=== PATIENT | female | born 1990 | race Caucasian/White ===

== ENCOUNTER → 2016-05-26 | Outpatient (CLI) | payer OTHER ==
[~2016-05-26] MED LIST: BCP PO; COLA100C PO; HYDR-3713 PO; IRON325T PO; MILKSUS PO; MULTLIQ7 PO; TYLE325T5 PO; WELLTAB40 PO
[2016-05-26 16:30] LABS: MEAN CORPUSCULAR HEMOGLOBIN 28.9 pg (27.0-33.0); MEAN CORPUSCULAR HGB CONC 33.5 g/dl (32.0-36.5); MEAN CORPUSCULAR VOLUME 86.4 fl (80.0-96.0); RED CELL DISTRIBUTION WIDTH 13.7 % (11.5-14.5)
[2016-05-26 17:11] LABS: ALBUMIN 3.9 GM/DL (3.2-5.2); ALBUMIN/GLOBULIN RATIO 1.05 (1.00-1.93); ALKALINE PHOSPHATASE 78 U/L (45-117); ALT/SGPT 46 U/L (12-78); ANION GAP 11 MEQ/L (8-16); AST/SGOT 23 U/L (15-37); BILIRUBIN,TOTAL 0.4 MG/DL (0.2-1.0); BLOOD UREA NITROGEN 13 MG/DL (7-18); CALCIUM LEVEL 9.7 MG/DL (8.5-10.1); CARBON DIOXIDE LEVEL 27 MEQ/L (21-32); CHLORIDE LEVEL 104 MEQ/L (98-107); CREATININE FOR GFR 1.04 MG/DL (0.55-1.02); FREE T4 0.78 NG/DL (0.76-1.46); GLOMERULAR FILTRATION RATE > 60.0 (>60); GLUCOSE, FASTING 85 MG/DL (70-105); POTASSIUM SERUM 3.4 MEQ/L (3.5-5.1); SODIUM LEVEL 142 MEQ/L (136-145); TOTAL PROTEIN 7.6 GM/DL (6.4-8.2)
== END ==
LOC: M WUC 15:34
PROVIDERS: ATTEND Family Medicine
DX: F43.21 Adjustment disorder with depressed mood (principal); E03.9 Hypothyroidism, unspecified

== ENCOUNTER → 2016-11-18 | Outpatient (CLI) | payer OTHER ==
[~2016-11-18] MED LIST changes: -COLA100C PO; +COLA100C5 PO
[2016-11-18 17:12] LABS: FREE T4 0.71 NG/DL (0.76-1.46)
== END ==
LOC: M WUC 15:06
PROVIDERS: ATTEND Family Medicine
DX: E03.9 Hypothyroidism, unspecified (principal)

== ENCOUNTER → 2017-09-25 | Outpatient (REF) | payer BC, OTHER | LOC: M LAB REF 09-26 10:38 | DX: J02.9 Acute pharyngitis, unspecified (principal) | CPT/HCPCS: 87077 ==

== ENCOUNTER → 2018-01-13 | Outpatient (CLI) | payer BC ==
[2018-01-13 17:12] LABS: ALBUMIN 3.6 GM/DL (3.2-5.2); ALBUMIN/GLOBULIN RATIO 0.92 (1.00-1.93); ALKALINE PHOSPHATASE 78 U/L (45-117); ALT/SGPT 29 U/L (12-78); ANION GAP 12 MEQ/L (8-16); AST/SGOT 17 U/L (7-37); BILIRUBIN,TOTAL 0.4 MG/DL (0.2-1.0); BLOOD UREA NITROGEN 12 MG/DL (7-18); CALCIUM LEVEL 8.9 MG/DL (8.5-10.1); CARBON DIOXIDE LEVEL 22 MEQ/L (21-32); CHLORIDE LEVEL 107 MEQ/L (98-107); CHOLESTEROL LEVEL 161 MG/DL (<200); CHOLESTEROL RISK RATIO 4.878 (<5); CREATININE FOR GFR 0.88 MG/DL (0.55-1.30); GLOMERULAR FILTRATION RATE > 60.0 (>60); GLUCOSE, FASTING 81 MG/DL (70-100); HDL CHOLESTEROL 33 MG/DL (>40); LDL CHOLESTEROL 102 MG/DL (<100); NON-HDL-C 128 MG/DL; POTASSIUM SERUM 4.2 MEQ/L (3.5-5.1); SODIUM LEVEL 141 MEQ/L (136-145); TOTAL PROTEIN 7.5 GM/DL (6.4-8.2); TRIGLYCERIDES LEVEL 132 MG/DL (<150)
== END ==
LOC: M WUC 14:30
DX: I10 Essential (primary) hypertension (principal); E78.1 Pure hyperglyceridemia
CPT/HCPCS: 80053

== ENCOUNTER 2018-02-08 06:50 | Emergency (ER) | payer BC ==
[2018-02-08] MEDS: KETOROLAC 30 MG/ML VIAL (J1885) IV ×2 (07:31)
[2018-02-08] MEDS: METOCLOPRAMIDE INJ 10MG/2ML VIAL (J2765) IV ×2 (07:31)
[2018-02-08] MEDS: NS 1,000 ML IV ×2 (07:31)
[2018-02-08 07:33] LABS: BASO % 0.3 % (0.0-1.0); EOS % 0.2 % (0.0-3.0); HEMATOCRIT 40.2 % (36.0-47.0); HEMOGLOBIN 12.8 g/dl (12.0-15.5); IMMATURE GRANULOCYTE % 0.5 % (0-3.0); LYMPH # 1.3 10^3/uL (1.5-6.5); MEAN CORPUSCULAR HEMOGLOBIN 26.1 pg (27.0-33.0); MEAN CORPUSCULAR HGB CONC 31.8 g/dl (32.0-36.5); MONO # 1.5 10^3/uL (0.0-0.8); MONO % 12.6 % (0.0-5.0); NEUTROPHILS # 8.7 10^3/uL (1.8-7.7); NEUTROPHILS % 75.4 % (36.0-66.0); PLATELET COUNT, AUTOMATED 353 10^3/uL (150-450); RED CELL DISTRIBUTION WIDTH 15.8 % (11.5-14.5); WHITE BLOOD COUNT 11.5 10^3/uL (4.0-10.0)
[2018-02-08 07:55] LABS: ERYTHROCYTE SEDIMENTATION RATE 48 mm/hr (0-20)
[2018-02-08 07:58] LABS: ANION GAP 7 MEQ/L (8-16); BLOOD UREA NITROGEN 10 MG/DL (7-18); CALCIUM LEVEL 9.4 MG/DL (8.5-10.1); CARBON DIOXIDE LEVEL 26 MEQ/L (21-32); CHLORIDE LEVEL 106 MEQ/L (98-107); CREATININE FOR GFR 0.96 MG/DL (0.55-1.30); GLOMERULAR FILTRATION RATE > 60.0 (>60); GLUCOSE, FASTING 105 MG/DL (70-100); SODIUM LEVEL 139 MEQ/L (136-145)
[2018-02-08] MEDS: ACETAMINOPHEN 325 MG TAB PO ×2 (08:26)
== END 2018-02-08 09:08 | disposition home or self-care (01) ==
LOC: M ED 06:50
DX: R51 Headache (principal); B34.9 Viral infection, unspecified
CPT/HCPCS: J1885

== ENCOUNTER → 2018-02-09 | Outpatient (REF) | payer BC ==
[2018-02-09 13:51] LABS: APPEARANCE, URINE HAZY (CLEAR); BACTERIA, URINE AUTO NEGATIVE (NEGATIVE); BILIRUBIN, URINE AUTO NEGATIVE (NEGATIVE); BLOOD, URINE BLOOD 2+ (NEGATIVE); COLOR, URINE YELLOW (YELLOW); GLUCOSE, URINE (UA) AUTO NEGATIVE (NEGATIVE); KETONE, URINE AUTO NEGATIVE (NEGATIVE); LEUKOCYTE ESTERASE, URINE AUTO 1+ (NEGATIVE); MUCUS, URINE SMALL (NEGATIVE); NITRITE, URINE AUTO NEGATIVE (NEGATIVE); PROTEIN, URINE AUTO NEGATIVE (NEGATIVE); RBC, URINE AUTO 13 /HPF (0-3); SPECIFIC GRAVITY URINE AUTO 1.015 (1.002-1.035); SQUAMOUS EPITHELIAL CELL UR AU 0 /HPF (0-6); UROBILINOGEN, URINE AUTO 0.2 mg/dL (0.0-2.0); WBC, URINE AUTO 15 /HPF (0-3)
== END ==
LOC: M LAB REF 12:41
DX: N39.0 Urinary tract infection, site not specified (principal)
CPT/HCPCS: 81001

== ENCOUNTER → 2018-03-21 | Outpatient (REF) | payer BC | LOC: M SFHCPLAZ 20:28 | DX: I78.1 Nevus, non-neoplastic (principal) | CPT/HCPCS: 88305 ==

== ENCOUNTER → 2019-05-06 | Outpatient (REF) | payer BC ==
[~2019-05-06] MED LIST changes: +CHLO125TA; +IBUP80TA PO; +LEVO75TA4; +MILK120011 PO; -MILKSUS PO; +VERA120C; +VITA200016 PO; +ZOFR4TAB14 PO
== END ==
LOC: M LAB REF 12:06
PROVIDERS: ATTEND Physician Assistant Medical
DX: J02.9 Acute pharyngitis, unspecified (principal)

== ENCOUNTER → 2019-07-04 | Outpatient (REF) | payer BC ==
[2019-07-04 16:43] LABS: HEMATOCRIT 43.3 % (36.0-47.0); HEMOGLOBIN 13.9 g/dl (12.0-15.5); MEAN CORPUSCULAR HGB CONC 32.1 g/dl (32.0-36.5); MEAN CORPUSCULAR VOLUME 90.4 fl (80.0-96.0); PLATELET COUNT, AUTOMATED 382 10^3/uL (150-450); RED BLOOD COUNT 4.79 10^6/uL (4.00-5.40); WHITE BLOOD COUNT 10.6 10^3/uL (4.0-10.0)
[2019-07-04 17:02] LABS: ALBUMIN 3.6 GM/DL (3.2-5.2); ALT/SGPT 34 U/L (12-78); BILIRUBIN,TOTAL 0.4 MG/DL (0.2-1.0); BLOOD UREA NITROGEN 14 MG/DL (7-18); CALCIUM LEVEL 8.9 MG/DL (8.5-10.1); CARBON DIOXIDE LEVEL 25 MEQ/L (21-32); CHLORIDE LEVEL 108 MEQ/L (98-107); CREATININE FOR GFR 0.85 MG/DL (0.55-1.30); FREE T4 0.77 NG/DL (0.76-1.46); GLOMERULAR FILTRATION RATE > 60.0 (>60); GLUCOSE, FASTING 81 MG/DL (70-100); POTASSIUM SERUM 4.4 MEQ/L (3.5-5.1); SODIUM LEVEL 140 MEQ/L (136-145); TOTAL PROTEIN 7.1 GM/DL (6.4-8.2)
== END ==
LOC: M SFHCADAM 12:22
PROVIDERS: ATTEND Physician Assistant
DX: F43.21 Adjustment disorder with depressed mood (principal); F41.9 Anxiety disorder, unspecified; I10 Essential (primary) hypertension; E03.9 Hypothyroidism, unspecified

== ENCOUNTER 2019-09-10 20:53 | Inpatient (IN) | payer BC ==
[~2019-09-10] VITALS: Ht 180.3 cm; Wt 165.4 kg
[~2019-09-10 20:53] MED LIST changes: -CHLO125TA; +CHLO125TA PO; -LEVO75TA4; +LEVO75TA4 PO; -VERA120C; +VERA120C PO
[2019-09-10] MEDS ORDERED: ONDANSETRON 4MG/2ML VIAL IV ONE (21:30)
[2019-09-10] MEDS ORDERED: NS 1,000 ML IV ONE (21:30)
[2019-09-10] MEDS ORDERED: IBUPROFEN 600 MG TAB PO ONE (21:30)
[2019-09-10 22:18] LABS: ALBUMIN 3.3 GM/DL (3.2-5.2); ALT/SGPT 43 U/L (12-78); BILIRUBIN,DIRECT 0.3 MG/DL (0.0-0.2); BILIRUBIN,TOTAL 0.8 MG/DL (0.2-1.0); BLOOD UREA NITROGEN 11 MG/DL (7-18); CALCIUM LEVEL 8.2 MG/DL (8.5-10.1); CARBON DIOXIDE LEVEL 27 MEQ/L (21-32); CHLORIDE LEVEL 101 MEQ/L (98-107); CK-MB VALUE MASS 1.4 NG/ML (<3.6); CPK CREATINE PHOSPHOKINASE 897 U/L (26-192); CREATININE FOR GFR 1.08 MG/DL (0.55-1.30); GLOMERULAR FILTRATION RATE > 60.0 (>60); GLUCOSE, FASTING 103 MG/DL (70-100); LIPASE 90 U/L (73-393); MB/CK RELATIVE INDEX 0.16 (< OR =4); POTASSIUM SERUM 3.2 MEQ/L (3.5-5.1); SODIUM LEVEL 135 MEQ/L (136-145); TOTAL PROTEIN 7.1 GM/DL (6.4-8.2); TROPONIN I < 0.02 NG/ML (< 0.10)
[2019-09-10 22:19] LABS: BASO % 0.5 % (0.0-1.0); EOS # 0.1 10^3/uL (0.0-0.5); EOS % 0.6 % (0.0-3.0); HEMATOCRIT 40.3 % (36.0-47.0); HEMOGLOBIN 13.8 g/dl (12.0-15.5); LYMPH # 0.9 10^3/uL (1.5-5.0); LYMPH % 10.5 % (24.0-44.0); MEAN CORPUSCULAR HEMOGLOBIN 30.1 pg (27.0-33.0); MEAN CORPUSCULAR HGB CONC 34.2 g/dl (32.0-36.5); MONO # 0.4 10^3/uL (0.0-0.8); MONO % 4.9 % (0.0-5.0); NEUTROPHILS # 7.2 10^3/uL (1.5-8.5); NEUTROPHILS % 82.7 % (36.0-66.0); PLATELET COUNT, AUTOMATED 186 10^3/uL (150-450); RED BLOOD COUNT 4.58 10^6/uL (4.00-5.40); WHITE BLOOD COUNT 8.8 10^3/uL (4.0-10.0)
[2019-09-10 22:20] LABS: HCG, SERUM QUALITATIVE NEGATIVE (NEGATIVE)
[2019-09-10] MEDS ORDERED: POTASSIUM CHLORIDE 10 MEQ SR TABLET PO ONE (22:30)
[2019-09-10] MEDS ORDERED: ACETAMINOPHEN TAB 650MG DOSE (2X325MG) PO ONE (22:30)
[2019-09-10] MEDS ORDERED: ACETAMINOPHEN TAB 650MG DOSE (2X325MG) As Ordered ONE (22:32)
[2019-09-10] MEDS ORDERED: BUSP15TA47 PO (22:57)
[2019-09-10] MEDS ORDERED: VITA-144 PO (22:57)
--- NOTE | 2019-09-10 23:12 | REPVR ---
PROCEDURE INFORMATION: Exam: XR Chest, 1 View Exam date and time: 09/10/2019 10:47 PM Age: 28 years old Clinical indication: Fever TECHNIQUE: Imaging protocol: XR of the chest Views: 1 view. COMPARISON: No relevant prior studies available. FINDINGS: Lungs: Unremarkable. No consolidation. No pulmonary edema. Pleural space: Unremarkable. No pleural effusion or pneumothorax is identified. Heart/Mediastinum: Unremarkable. No cardiomegaly. Bones/joints: Unremarkable. IMPRESSION: No acute findings. Electronically signed by: Guillermo Villarreal On 09/10/2019 23:11:48 PM
[2019-09-10] MEDS ORDERED: CIPROFLOXACIN 400 MG in IV 1 EA IV ONE (23:45)
[2019-09-11 00:51] VITALS: BP 126/59
--- NOTE | 2019-09-11 01:35 | HPEPDOC ---
[facility] Medical History & Physical Date of Admission September 11, 2019 Date of Service: September 11, 2019 Primary Care Physician: Johann Ashley MD History and Physical CHIEF COMPLAINT: Fevers HISTORY OF PRESENT ILLNESS: Shelia Vega is a 28 year old female who presented to the emergency department with a three-day history of fevers and body aches. Her symptoms began on Tuesday after driving out to [facility] to visit family. She states that she thought she was dehydrated , experiencing chills, nausea, vomiting and body aches. 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 Today she was able to obtain a thermometer, and found her temperature to be 103F. This is when she decided to seek medical care. She has noticed some urinary frequency but denies dysuria. 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 In the ED, workup revealed likely UTI with little improvement of fever despite treatment with tylenol and ibuprofen. She was started on IV ciprofloxacin for UTI coverage and hospitalist team was called for admission. PAST MEDICAL HISTORY: 1. PCOS 2. Depression/anxiety. 3. Hypothyroidism 4. Hypertension PAST SURGICAL HISTORY: 1. Internal fixation of bilateral wrists 1996 2. Lateral Meniscus repair 2006 3. Cholecystectomy 2013 SOCIAL HISTORY: Never smoker. Occasional alcohol use. No history of IV drug use. FAMILY HISTORY: Father alive with diabetes mellitus and hypertension. Mother alive with hypertension. ALLERGIES: Please see below. REVIEW OF SYSTEMS: CONSTITUTIONAL: Positive per HPI. Denies night sweats, fatigue, unexpected change in weight. HEENT: Denies change in vision, change in hearing. CARDIOVASCULAR: Denies chest pain, palpitations, shortness of breath, lightheadedness. RESPIRATORY: Denies dyspnea, cough, wheezing. GASTROINTESTINAL: Positive per HPI. Denies abdominal pain, diarrhea, constipation, blood in stool. GENITOURINARY: Positive per HPI. Denies dysuria, urinary urgency. SKIN: Denies rash, lesions. MUSCULOSKELETAL: Positive per HPI. Denies joint pain. NEUROLOGICAL: Denies headache, dizziness, weakness. PSYCHIATRIC: Denies change in mood. HOME MEDICATIONS: Please see below. PHYSICAL EXAMINATION: VITAL SIGNS: See below GENERAL: Alert, comfortable, obese female sitting up comfortably in bed in no acute distress HEENT: Normocephalic, atraumatic, PERRLA, EOMI, moist mucous membranes NECK: Supple, trachea midline, no lymphadenopathy, no JVD CARDIOVASCULAR: Regular rate and rhythm, normal S1 and S2. No murmurs, rubs, or gallops RESPIRATORY: Clear to auscultation bilaterally with equal air entry bilaterally. No wheezing, rhonchi, or rales. ABDOMEN: Soft, nontender, nondistended, bowel sounds present, no masses or hepatosplenomegaly appreciated. No CVA tenderness. EXTREMITIES: No cyanosis or edema. Pulses 2+/4 in bilateral upper and lower extremities SKIN: [place], warm, dry, no rash NEUROLOGIC: Alert and oriented 3 to person, place and time. Cranial nerves 2-12 grossly intact. No focal deficits appreciated PSYCHIATRIC: Mood and affect appropriate LABORATORY DATA: See below. IMAGING: -CXR: No acute findings. MICROBIOLOGY: Please see below. ASSESSMENT: 28-year-old female presenting with three-day history of fevers and myalgias admitted for treatment of sepsis secondary to UTI PLAN: 1. Sepsis 2/2 UTI vs unknown source - sepsis criteria with tachycardia and fever, s/p 1 liter IV fluids, lactic acid <2 - CXR negative for pneumonia, respiratory panel negative, COVID-19 negative. - UA suspicious for infection, urinary culture pending, IV ciprofloxacin day #1 - blood cultures x2 drawn and pending - Tylenol prn for fever. telemetry unit for tachycardia. 2. Hypokalemia - check Mg level, replete electrolytes as needed, monitor daily 3. HTN - continue home verapamil and chlorthalidone 4. Depression/anxiety - continue home bupropion and buspirone 5. Hypothyroidism - continue home levothyroxine DVT prophylaxis: lovenox, teds/scds GI prophylaxis: not currently indicated Disposition: admitted to PCU for IV antibiotics, telemetry monitoring, further evaluation of fever Vital Signs Vital Signs Date Time Temp Pulse Resp B/P (MAP) Pulse Ox O2 Delivery O2 Flow Rate FiO2 09/11/19 00:15 101.0 101 16 126/62 (83) 99 Room Air Laboratory Data Labs 24H Laboratory Tests 2 09/10/19 21:16: Lactic Acid Level 1.3, Coronavirus (COVID-19)(PCR) NEGATIVE 09/10/19 21:17: Immature Granulocyte % (Auto) 0.8, Neutrophils (%) (Auto) 82.7H, Lymphocytes (%) (Auto) 10.5L, Monocytes (%) (Auto) 4.9, Eosinophils (%) (Auto) 0.6, Basophils (%) (Auto) 0.5, Neutrophils # (Auto) 7.2, Lymphocytes # (Auto) 0.9L, Monocytes # (Auto) 0.4, Eosinophils # (Auto) 0.1, Basophils # (Auto) 0.0, Nucleated Red Blood Cells % (auto) 0.0, Anion Gap 7L, Glomerular Filtration Rate > 60.0, Calcium Level 8.2L, Total Bilirubin 0.8, Direct Bilirubin 0.3H, Aspartate Amino Transf (AST/SGOT) 68H, Alanine Aminotransferase (ALT/SGPT) 43, Alkaline Phosphatase 69, Total Creatine Kinase 897H, Creatine Kinase MB 1.4, Creatine Kinase MB Relative Index 0.16, Troponin I < 0.02, Total Protein 7.1, Albumin 3.3, Albumin/Globulin Ratio 0.9L, Lipase 90, Human Chorionic Gonadotropin, Qual NEGATIVE 09/10/19 22:25: Urine Color CHE, Urine Appearance HAZY, Urine pH 6.0, Urine Specific [place] 1.025, Urine Protein 2+H, Urine Glucose (UA) NEGATIVE, Urine Ketones TRACEH, Urine Blood 2+H, Urine Nitrite NEGATIVE, Urine Bilirubin NEGATIVE, Urine Urobilinogen 4.0H, Urine Leukocyte Esterase 2+H, Urine WBC (Auto) TNTCH, Urine RBC (Auto) 10H, Urine Hyaline Casts (Auto) 0, Urine Bacteria (Auto) 1+H, Urine Squamous Epithelial Cells 5, Urine Mucus (Auto) SMALL, Urine Sperm (Auto) CBC/BMP Laboratory Tests 09/10/19 21:17 Microbiology Microbiology 09/10/19 Urine Culture, Received Pending 09/10/19 Blood Culture, Received Pending 09/10/19 Blood Culture, Received Pending 09/10/19 Respiratory Virus Panel (PCR) (LINDA) - Final, Complete Home Medications Scheduled Bupropion HCl (Wellbutrin Xl) 300 Mg Tab, 300 MG PO DAILY Buspirone HCl (Buspirone HCl) 15 Mg Tablet, 15 MG PO DAILY Chlorthalidone (Chlorthalidone) 12.5 Mg Halftab, 25 MG PO DAILY Cholecalciferol (Vitamin D3) (Vitamin D3) 25 Mcg Tablet, 1,000 UNITS PO DAILY Levothyroxine Sodium (Levothyroxine Sodium) 75 Mcg Tab, 75 MCG PO DAILY Verapamil HCl (Verapamil ER) 120 Mg Cap, 120 MG PO DAILY Allergies Coded Allergies: cefuroxime (Verified Allergy, Mild, 09/12/19) GME ATTESTATION My faculty preceptor for this patient encounter was physically present during the encounter and was fully available. All aspects of the patient interview, examination, medical decision making process, and medical care plan development were reviewed and approved by the faculty preceptor. The faculty preceptor is aware and concurs with the plan as stated in the body of this note and will attest to such by his/her cosignature. ATTENDING NOTE I personally evaluated and examined Ms. Flores and discussed her plan with the resident physician as outlined above. 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 LANE MALLORY D.O. September 11, 2019 01:35 SUMAN COWAN MD September 18, 2019 06:22
[2019-09-11] MEDS ORDERED: POTASSIUM CHLORIDE 10 MEQ SR TABLET PO ONE ×2 (02:00→06:00)
[2019-09-11] MEDS ORDERED: SLF 3 ML SYR IV PRN (02:30)
[2019-09-11 04:00] VITALS: BP 128/86
[2019-09-11 05:30] LABS: HEMATOCRIT 38.2 % (36.0-47.0); HEMOGLOBIN 12.9 g/dl (12.0-15.5); MEAN CORPUSCULAR HEMOGLOBIN 29.9 pg (27.0-33.0); MEAN CORPUSCULAR HGB CONC 33.8 g/dl (32.0-36.5); MEAN CORPUSCULAR VOLUME 88.4 fl (80.0-96.0); PLATELET COUNT, AUTOMATED 165 10^3/uL (150-450); RED BLOOD COUNT 4.32 10^6/uL (4.00-5.40); WHITE BLOOD COUNT 11.7 10^3/uL (4.0-10.0)
[2019-09-11 05:50] LABS: ALT/SGPT 45 U/L (12-78); BILIRUBIN,TOTAL 0.7 MG/DL (0.2-1.0); BLOOD UREA NITROGEN 11 MG/DL (7-18); CARBON DIOXIDE LEVEL 25 MEQ/L (21-32); CHLORIDE LEVEL 105 MEQ/L (98-107); CREATININE FOR GFR 0.98 MG/DL (0.55-1.30); GLOMERULAR FILTRATION RATE > 60.0 (>60); GLUCOSE, FASTING 95 MG/DL (70-100); MAGNESIUM LEVEL 2.2 MG/DL (1.8-2.4); POTASSIUM SERUM 3.1 MEQ/L (3.5-5.1); SODIUM LEVEL 138 MEQ/L (136-145); TOTAL PROTEIN 6.3 GM/DL (6.4-8.2)
[2019-09-11] MEDS: SLF 3 ML SYR IV SCH ×3 (06:43→21:11)
[2019-09-11] MEDS: ACETAMINOPHEN TAB 650MG DOSE (2X325MG) PO PRN ×3 (07:00→21:39)
--- NOTE | 2019-09-11 07:16 | ECGEPIP ---
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
[2019-09-11 08:00] VITALS: BP 140/78
[2019-09-11] MEDS: KCL 10MEQ/100ML SWI (KRUN) 10 MEQ in IV 1 EA IV SCH ×2 (09:00→09:32)
[2019-09-11] MEDS: busPIRone 5 MG TAB PO SCH (09:32)
[2019-09-11] MEDS: buPROPion **XL** TABLET 150MG (WELLBUTRIN XL) PO SCH (09:32)
[2019-09-11] MEDS: ENOXAPARIN 40MG/0.4ML SYRINGE (J1650 PER 10MG) SC SCH (09:32)
[2019-09-11] MEDS: LEVOTHYROXINE 75MCG TABLET (0.075MG) PO SCH (09:33)
[2019-09-11] MEDS: CHLORTHALIDONE 25 MG TAB PO SCH (09:33)
[2019-09-11] MEDS: VITAMIN D 1,000 INTERNATIONAL UNITS TABLET PO SCH (09:33)
[2019-09-11] MEDS: VERAPAMIL 120 MG SR TAB PO SCH (09:33)
[2019-09-11 12:00] VITALS: BP 146/72
[2019-09-11] MEDS ORDERED: CIPROFLOXACIN 400 MG in IV 1 EA IV SCH ×2 (12:00)
[2019-09-11 14:25] LABS: FIBRINOGEN 388 MG/DL (221-452); INR 1.32; PROTHROMBIN TIME 16.1 SECONDS (11.8-14.0)
[2019-09-11 14:26] LABS: PARTIAL THROMBOPLASTIN TIME 36.4 SECONDS (25.0-38.4)
[2019-09-11 14:47] LABS: D-DIMER QUANT > 4000.00 ng/ml (<500)
--- NOTE | 2019-09-11 14:54 | REP ---
REASON FOR EXAM: Acute kidney injury. COMPARISON: 07/17/2015 Once again, the examination is limited due to the patient's body habitus. RENAL ULTRASOUND: FINDINGS: Multiple ultrasonographic images of the right kidney show the right kidney to measure 12.2 x 6.7 x 5.8 cm. The renal cortical echotexture is unremarkable. There are no masses. There is good corticomedullary differentiation. There is no hydronephrosis. There are no perinephric fluid collections. Multiple ultrasonographic images of the left kidney show the left kidney to measure 11.6 x 6.2 x 5.1 cm. The renal cortical echotexture is unremarkable. There are no masses. There is good corticomedullary differentiation. There is no hydronephrosis. There are no perinephric fluid collections. Doppler of the urinary bladder was obtained to assess for urojet phenomena at the ureterovesical junction, however, the urinary bladder was empty. IMPRESSION: Unremarkable renal ultrasonography. Once again, the exam is limited by the patient's body habitus. There does not appear to be a significant change compared to the prior exam. Electronically Signed by Ghanshyam Ruggiero DO 09/11/2019 03:21 P
[2019-09-11] MEDS: ONDANSETRON 4MG/2ML VIAL IV SCH ×2 (14:56→20:00)
[2019-09-11] MEDS ORDERED: cefTRIAXone SOD 2 GM in D5W MINI-BAG PLUS 50 ML IV ONE (15:00)
[2019-09-11 15:06] LABS: HCG, SERUM QUANTITATIVE < 1.0 MIU/ML
[2019-09-11 15:07] LABS: CPK CREATINE PHOSPHOKINASE 1410 U/L (26-192); FERRITIN 7576 NG/ML (8-252); LDH LACTATE DEHYDROGENASE 492 U/L (84-246); TROPONIN I < 0.02 NG/ML (< 0.10)
[2019-09-11] MEDS: NS 1,000 ML IV SCH (15:57)
[2019-09-11 16:00] VITALS: BP 158/88
[2019-09-11] MEDS ORDERED: IBUPROFEN 600 MG TAB PO ONE (16:00)
[2019-09-11] MEDS ORDERED: ISOVUE-370 76% 100ML VIAL As Ordered ONE (16:41)
--- NOTE | 2019-09-11 16:52 | IPNPDOC ---
Date Seen The patient was seen on 09/11/19. Progress Note SUBJECTIVE: Patient seen and examined at the bedside this afternoon. She complains of severe right lower quadrant abdominal pain radiating to her back. She has difficulty moving around in the bed due to her pain. She continues to have fevers, this afternoon as high as 101.2. She is also complaining of nausea and has vomited this afternoon. Otherwise, she has no lightheadedness or dizziness and no difficulty ambulating. She denies any shortness of breath or cough. OBJECTIVE PHYSICAL EXAMINATION: VITAL SIGNS: Please see below. GENERAL APPEARANCE: Laying in bed, obese, appears stated age, no acute distress, calm, cooperative HEENT: EOMI, PERRLA, neck is supple with no thyromegaly or lymphadenopathy RESPIRATORY: Lungs are clear to auscultation bilaterally with no adventitious breath sounds appreciated CARDIOVASCULAR: no JVD, RRR,no murmurs/rubs/gallops, normal S1 and S2 ABDOMEN: +BS, tender to deep palpation in the right lower quadrant, soft, no rebound tenderness, no organomegaly EXTREMITIES: no clubbing, cyanosis or edema noted NEUROLOGICAL: CN 2-12 intact, No obvious focal deficits PSYCHIATRIC: normal mood/affect Skin: No rashes or ulcers appreciated, warm and well-perfused LN: No significant cervical or inguinal lymphadenopathy LABORATORY DATA, IMAGING STUDIES, MICROBIOLOGY: Please see below. IMAGING: CXR: FINDINGS: Lungs: Unremarkable. No consolidation. No pulmonary edema. Pleural space: Unremarkable. No pleural effusion or pneumothorax is identified. Heart/Mediastinum: Unremarkable. No cardiomegaly. Bones/joints: Unremarkable. IMPRESSION: No acute findings. RENAL ULTRASOUND: FINDINGS: Multiple ultrasonographic images of the right kidney show the right kidney to measure 12.2 x 6.7 x 5.8 cm. The renal cortical echotexture is unremarkable. There are no masses. There is good corticomedullary differentiation. There is no hydronephrosis. There are no perinephric fluid collections. Multiple ultrasonographic images of the left kidney show the left kidney to measure 11.6 x 6.2 x 5.1 cm. The renal cortical echotexture is unremarkable. There are no masses. There is good corticomedullary differentiation. There is no hydronephrosis. There are no perinephric fluid collections. Doppler of the urinary bladder was obtained to assess for urojet phenomena at the ureterovesical junction, however, the urinary bladder was empty. IMPRESSION: Unremarkable renal ultrasonography. Once again, the exam is limited by the patient's body habitus. There does not appear to be a significant change compared to the prior exam. Echocardiogram: None DVT prophylaxis ordered?: Lovenox ASSESSMENT AND PLAN: This is a 28-year-old female with past medical history hypertension, hypothyroidism, PCOS, who presents with fevers, chills and nausea, concerning for acute abdominal infection of unknown etiology versus viral infection. PROBLEMS: 1. Sepsis, unknown source at this time: -Patient continues to have fevers, continue Tylenol + Ibuprofen -Urine demonstrates UTI with concern for Pyelonephritis, no CVA tenderness on exam -Urine culture pending -Blood cultures pending -Cirpofloxacin switched to Rocephin for UTI. Patient-reported allergy most likely false per my discussion with the patient -Continue IVF NS 100cc/hr -COVID-19 labs demonstrate elevated inflammatory markers. Low suspicion COVID- 19, but patient has been in contact with known positive patients. May repeat test tomorrow if no clinical improvement. -CT abd/pelvis ordered for further workup of abdominal pain 2. HTN: -Continue Chlorthalidone, Verapamil 3. Hypothyroidism: -Continue Levothyroxine 4. Mood disorder: -Continue Wellbutrin, Buspar DISPOSITION: Pending clinical improvement VS, I&O, [facility] Vital Signs/I&O Vital Signs Date Time Temp Pulse Resp B/P (MAP) Pulse Ox O2 Delivery O2 Flow Rate FiO2 09/11/19 15:30 101.2 09/11/19 12:00 86 19 146/72 (96) 99 Room Air I&O- Last 24 Hours up to 6 AM 09/11/19 06:00 Intake Total 1005 ml Output Total 0 ml Balance 1005 ml Laboratory Data 24H LABS Laboratory Tests 2 09/10/19 21:16: Lactic Acid Level 1.3, Coronavirus (COVID-19)(PCR) NEGATIVE 09/10/19 21:17: Immature Granulocyte % (Auto) 0.8, Neutrophils (%) (Auto) 82.7H, Lymphocytes (%) (Auto) 10.5L, Monocytes (%) (Auto) 4.9, Eosinophils (%) (Auto) 0.6, Basophils (%) (Auto) 0.5, Neutrophils # (Auto) 7.2, Lymphocytes # (Auto) 0.9L, Monocytes # (Auto) 0.4, Eosinophils # (Auto) 0.1, Basophils # (Auto) 0.0, Nucleated Red Blood Cells % (auto) 0.0, Anion Gap 7L, Glomerular Filtration Rate > 60.0, Calcium Level 8.2L, Total Bilirubin 0.8, Direct Bilirubin 0.3H, Aspartate Amino Transf (AST/SGOT) 68H, Alanine Aminotransferase (ALT/SGPT) 43, Alkaline Phosphatase 69, Total Creatine Kinase 897H, Creatine Kinase MB 1.4, Creatine Kinase MB Relative Index 0.16, Troponin I < 0.02, Total Protein 7.1, Albumin 3.3, Albumin/Globulin Ratio 0.9L, Lipase 90, Human Chorionic Gonadotropin, Qual NEGATIVE 09/10/19 22:25: Urine Color CHE, Urine Appearance HAZY, Urine pH 6.0, Urine Specific [place] 1.025, Urine Protein 2+H, Urine Glucose (UA) NEGATIVE, Urine Ketones TRACEH, Urine Blood 2+H, Urine Nitrite NEGATIVE, Urine Bilirubin NEGATIVE, Urine Urobilinogen 4.0H, Urine Leukocyte Esterase 2+H, Urine WBC (Auto) TNTCH, Urine RBC (Auto) 10H, Urine Hyaline Casts (Auto) 0, Urine Bacteria (Auto) 1+H, Urine Squamous Epithelial Cells 5, Urine Mucus (Auto) SMALL, Urine Sperm (Auto) 09/11/19 04:44: Nucleated Red Blood Cells % (auto) 0.0, Anion Gap 8, Glomerular Filtration Rate > 60.0, Calcium Level 8.0L, Total Bilirubin 0.7, Aspartate Amino Transf (AST /SGOT) 74H, Alanine Aminotransferase (ALT/SGPT) 45, Alkaline Phosphatase 65, Total Protein 6.3L, Albumin 3.0L, Albumin/Globulin Ratio 0.9L, Magnesium Level 2.2, C-Reactive Protein, Quantitative 13.50H 09/11/19 13:52: Prothrombin Time 16.1H, Prothromb Time International Ratio 1.32, Activated Partial Thromboplast Time 36.4, Fibrinogen 388, D-Dimer, Quantitative > 4000.00H, Ferritin 7576H, Lactate Dehydrogenase 492H, Total Creatine Kinase 1410H, Troponin I < 0.02, C-Reactive Protein, Quantitative 16.10H, Human Chorionic Gonadotropin, Quant < 1.0 CBC/BMP Laboratory Tests 09/10/19 21:17 09/11/19 04:44 Microbiology Microbiology 09/10/19 Urine Culture, Received Pending 09/10/19 Blood Culture, Received Pending 09/10/19 Blood Culture, Received Pending 09/10/19 Respiratory Virus Panel (PCR) (LINDA) - Final, Complete GME ATTESTATION GME ATTESTATION My faculty preceptor for this patient encounter was physically present during the encounter and was fully available. All aspects of the patient interview, examination, medical decision making process, and medical care plan development were reviewed and approved by the faculty preceptor. The faculty preceptor is aware and concurs with the plan as stated in the body of this note and will attest to such by his/her cosignature. ATTENDING NOTE Patient was seen and examined by me and agree with the above assessment and plan ILA READ MD September 11, 2019 16:02 AXEL WOOD MD September 14, 2019 17:38
--- NOTE | 2019-09-11 17:47 | REP ---
CT ABDOMEN AND PELVIS WITH IV BUT WITHOUT ORAL CONTRAST: HISTORY: Right lower quadrant and flank pain. Comparison is made with today's sonography of the kidneys. Comparison CT study, October 31, 2013. CT CONTRAST DOSE: 100 mL of intravenous Isovue [address] FINDINGS: Digital preliminary scout executive radiograph shows clips in the right upper quadrant and in the central pelvis. Bowel gas pattern is unremarkable. The lung bases are clear on axial CT images. There is mild diffuse fatty infiltration of the liver. The patient is post cholecystectomy. The spleen is mildly enlarged measuring 15.1 cm in greatest diameter. This is somewhat increased from its size on October 31, 2013 when it measured 13 cm in greatest diameter. No focal splenic lesion is seen. Normal adrenal glands are seen bilaterally. No abnormality is noted in the pancreas. The kidneys enhance symmetrically and are morphologically intact. No hydronephrosis or intrarenal calculus is seen on either side. There are scattered normal-sized periaortic lymph nodes, unchanged. No adenopathy is seen. There is mild left colonic diverticulosis without CT evidence of diverticulitis. An IUD is seen in the uterus within the pelvis. No uterine or ovarian abnormality is seen. A normal appendix is seen in the central pelvis. Urinary bladder is largely empty but appears intact. No abdominal wall defect is seen. Small and large bowel loops are otherwise unremarkable. IMPRESSION: Fatty infiltration of the liver. Post cholecystectomy. Mild splenomegaly. IUD in place. Normal appendix. Electronically Signed by Darrick Mendez MD 09/11/2019 06:50 P
[2019-09-11] MEDS: traMADol 50 MG TAB PO PRN (18:16)
[2019-09-11 20:00] VITALS: BP 121/62
[2019-09-12] VITALS (7 sets, daily range): BP systolic 105–136; BP diastolic 55–73
[2019-09-12] MEDS: traMADol 50 MG TAB PO PRN ×3 (00:20→11:47)
[2019-09-12] MEDS: NS 1,000 ML IV SCH ×2 (00:20→17:54)
[2019-09-12] MEDS: ONDANSETRON 4MG/2ML VIAL IV SCH ×4 (02:00→20:19)
[2019-09-12 04:29] LABS: HEMATOCRIT 36.3 % (36.0-47.0); HEMOGLOBIN 11.9 g/dl (12.0-15.5); MEAN CORPUSCULAR HEMOGLOBIN 29.2 pg (27.0-33.0); MEAN CORPUSCULAR HGB CONC 32.8 g/dl (32.0-36.5); PLATELET COUNT, AUTOMATED 135 10^3/uL (150-450); RED BLOOD COUNT 4.08 10^6/uL (4.00-5.40); WHITE BLOOD COUNT 6.1 10^3/uL (4.0-10.0)
[2019-09-12] MEDS: SLF 3 ML SYR IV SCH ×3 (04:33→20:20)
[2019-09-12 04:53] LABS: ALBUMIN 2.8 GM/DL (3.2-5.2); ALT/SGPT 63 U/L (12-78); BILIRUBIN,TOTAL 0.7 MG/DL (0.2-1.0); BLOOD UREA NITROGEN 11 MG/DL (7-18); CALCIUM LEVEL 8.1 MG/DL (8.5-10.1); CARBON DIOXIDE LEVEL 27 MEQ/L (21-32); CHLORIDE LEVEL 105 MEQ/L (98-107); CREATININE FOR GFR 0.96 MG/DL (0.55-1.30); GLOMERULAR FILTRATION RATE > 60.0 (>60); GLUCOSE, FASTING 82 MG/DL (70-100); POTASSIUM SERUM 3.5 MEQ/L (3.5-5.1); SODIUM LEVEL 139 MEQ/L (136-145); TOTAL PROTEIN 6.4 GM/DL (6.4-8.2)
[2019-09-12] MEDS: ACETAMINOPHEN TAB 650MG DOSE (2X325MG) PO PRN ×4 (06:50→22:43)
[2019-09-12 08:11] LABS: FREE T4 0.96 NG/DL (0.76-1.46)
[2019-09-12] MEDS: METOCLOPRAMIDE INJ 10MG/2ML VIAL (J2765 PER 1) IV PRN (10:32)
[2019-09-12] MEDS: IBUPROFEN 600 MG TAB PO PRN (10:32)
[2019-09-12 10:42] LABS: MONO REFLEX EBV COMP POSITIVE (NEGATIVE)
[2019-09-12] MEDS: LEVOTHYROXINE 75MCG TABLET (0.075MG) PO SCH (11:44)
[2019-09-12] MEDS: busPIRone 5 MG TAB PO SCH (11:45)
[2019-09-12] MEDS: buPROPion **XL** TABLET 150MG (WELLBUTRIN XL) PO SCH (11:46)
[2019-09-12] MEDS: VITAMIN D 1,000 INTERNATIONAL UNITS TABLET PO SCH (11:46)
[2019-09-12 11:47] LABS: HIV 1&2 SCREEN CENTAUR NEGATIVE (NEGATIVE)
[2019-09-12] MEDS: ENOXAPARIN 40MG/0.4ML SYRINGE (J1650 PER 10MG) SC SCH (11:48)
[2019-09-12] MEDS: PIPERACILLIN/TAZOBACTAM SOD 4.5 GM in D5W MINI-BAG PLUS 50 ML IV SCH ×2 (11:48→17:54)
[2019-09-12] MEDS ORDERED: cefTRIAXone SOD 2 GM in D5W MINI-BAG PLUS 50 ML IV SCH ×2 (12:00→16:00)
[2019-09-12] MEDS: CHLORTHALIDONE 25 MG TAB PO SCH (12:03)
[2019-09-12] MEDS: VERAPAMIL 120 MG SR TAB PO SCH (12:04)
[2019-09-12] MEDS: VANCOMYCIN HCL 1,000 MG, VIAL MATE ADAPTER 1 EACH in D5W 250 ML IV SCH ×2 (13:11→14:25)
--- NOTE | 2019-09-12 17:55 | IPNPDOC ---
Date Seen The patient was seen on 09/12/19. Progress Note SUBJECTIVE: Patient seen and examined at the bedside this morning. Nursing notes that her fever has gotten as high as 105 and has placed cooling blanket on her, as well as ibuprofen. She is quite tachycardic. The patient reports she was feeling "awful." . She reports weakness all over her body as well as pounding headaches that radiated to her neck and to her left shoulder. She denies any diarrhea but has had several bouts of emesis throughout the night. She denies any abdominal pain or chest pain at this time. She was transferred to the ICU for closer monitoring and this afternoon her fever has broken down to 98.3. OBJECTIVE PHYSICAL EXAMINATION: VITAL SIGNS: Please see below. GENERAL APPEARANCE: Laying in bed, obese, appears stated age, no acute distress, calm, cooperative HEENT: EOMI, PERRLA, neck is supple with no thyromegaly or lymphadenopathy RESPIRATORY: Lungs are clear to auscultation bilaterally with no adventitious breath sounds appreciated CARDIOVASCULAR: no JVD, RRR,no murmurs/rubs/gallops, normal S1 and S2 ABDOMEN: +BS, tender to deep palpation in the right lower quadrant, soft, no rebound tenderness, no organomegaly EXTREMITIES: no clubbing, cyanosis or edema noted NEUROLOGICAL: CN 2-12 intact, No obvious focal deficits BACK: there is pain to palpation of the base of the neck radiating down the left shoulder with movement PSYCHIATRIC: normal mood/affect Skin: No rashes or ulcers appreciated, warm and well-perfused LN: No significant cervical or inguinal lymphadenopathy LABORATORY DATA, IMAGING STUDIES, MICROBIOLOGY: Please see below. Echocardiogram: None DVT prophylaxis ordered?: Lovenox ASSESSMENT AND PLAN: This is a 28-year-old female with past medical history hypertension, hypothyroidism, PCOS, who presents with fevers, chills and nausea, concerning for acute abdominal infection of unknown etiology versus viral infection. PROBLEMS: 1. Sepsis, unknown source at this time: differential includes viral pathology vs COVID-19 -Patient continues to have fevers, continue Tylenol + Ibuprofen -Rocephin switched to vancomycin and Zosyn -Urine culture pending -Blood cultures pending -Continue IVF NS 100cc/hr -COVID-19 labs demonstrate elevated inflammatory markers. Low suspicion COVID- 19, but patient has been in contact with known positive patients. Test repeated -CT abd/pelvis negative for abdominal pathology -Will order Rheumatologic and viral workup -Monoscreen test positive 2. HTN: -Continue Chlorthalidone, Verapamil 3. Hypothyroidism: -Continue Levothyroxine 4. Mood disorder: -Continue Wellbutrin, Buspar DISPOSITION: Pending clinical improvement VS, I&O, 24H, Fishbone Vital Signs/I&O Vital Signs Date Time Temp Pulse Resp B/P (MAP) Pulse Ox O2 Delivery O2 Flow Rate FiO2 09/12/19 16:00 98.3 79 19 136/73 (94) 99 Room Air I&O- Last 24 Hours up to 6 AM 09/12/19 06:00 Intake Total 1050 ml Output Total 1050 ml Balance 0 ml Laboratory Data 24H LABS Laboratory Tests 2 09/12/19 04:01: Nucleated Red Blood Cells % (auto) 0.0, Anion Gap 7L, Glomerular Filtration Rate > 60.0, Calcium Level 8.1L, Total Bilirubin 0.7, Aspartate Amino Transf (AST/SGOT) 96H, Alanine Aminotransferase (ALT/SGPT) 63, Alkaline Phosphatase 75, Total Protein 6.4, Albumin 2.8L, Albumin/Globulin Ratio 0.8L, Thyroid Stimulating Hormone (TSH) 3.860H, Free Thyroxine 0.96 09/12/19 09:00: Rheumatoid Factor < 10.0, Monoscreen POSITIVEA, HIV Antigen/Antibody Combo Qual NEGATIVE 09/12/19 11:45: Lactic Acid Level 1.2 CBC/BMP Laboratory Tests 09/12/19 04:01 Microbiology Microbiology 09/12/19 Blood Culture, Received Pending 09/12/19 Blood Culture, Received Pending 09/11/19 Coronavirus COVID-19 PCR (LINDA), Received Pending 09/10/19 Urine Culture, Received Pending 09/10/19 Blood Culture - Preliminary, Resulted No growth after 24 hours . All specim... 09/10/19 Blood Culture - Preliminary, Resulted No growth after 24 hours . All specim... 09/10/19 Respiratory Virus Panel (PCR) (LINDA) - Final, Complete GME ATTESTATION GME ATTESTATION My faculty preceptor for this patient encounter was physically present during the encounter and was fully available. All aspects of the patient interview, examination, medical decision making process, and medical care plan development were reviewed and approved by the faculty preceptor. The faculty preceptor is aware and concurs with the plan as stated in the body of this note and will attest to such by his/her cosignature. ATTENDING NOTE Patient was seen and examined by me and agree with the above assessment and plan ILA READ MD September 12, 2019 17:55 AXEL WOOD MD September 14, 2019 17:38
[2019-09-12] MEDS: VANCOMYCIN HCL 750 MG, VIAL MATE ADAPTER 1 EACH in D5W 250 ML IV SCH (20:19)
[2019-09-12] MEDS: VANCOMYCIN HCL 500 MG in D5W MINI-BAG PLUS 100 ML IV SCH (22:30)
[2019-09-13] VITALS (9 sets, daily range): BP systolic 107–139; BP diastolic 56–71
[2019-09-13] MEDS: PIPERACILLIN/TAZOBACTAM SOD 4.5 GM in D5W MINI-BAG PLUS 50 ML IV SCH ×2 (00:31→07:43)
[2019-09-13] MEDS: ONDANSETRON 4MG/2ML VIAL IV SCH ×4 (02:41→19:25)
[2019-09-13] MEDS: ACETAMINOPHEN TAB 650MG DOSE (2X325MG) PO PRN ×5 (02:42→22:46)
[2019-09-13] MEDS: IBUPROFEN 600 MG TAB PO PRN (04:22)
[2019-09-13] MEDS: VANCOMYCIN HCL 750 MG, VIAL MATE ADAPTER 1 EACH in D5W 250 ML IV SCH (04:30)
[2019-09-13 04:44] LABS: HEMATOCRIT 36.1 % (36.0-47.0); MEAN CORPUSCULAR HEMOGLOBIN 29.1 pg (27.0-33.0); MEAN CORPUSCULAR HGB CONC 33.2 g/dl (32.0-36.5); MEAN CORPUSCULAR VOLUME 87.6 fl (80.0-96.0); PLATELET COUNT, AUTOMATED 124 10^3/uL (150-450); RED BLOOD COUNT 4.12 10^6/uL (4.00-5.40); WHITE BLOOD COUNT 6.1 10^3/uL (4.0-10.0)
[2019-09-13 04:53] LABS: INR 1.21
[2019-09-13 04:54] LABS: FIBRINOGEN 286 MG/DL (221-452); PARTIAL THROMBOPLASTIN TIME 32.3 SECONDS (25.0-38.4)
[2019-09-13] MEDS: traMADol 50 MG TAB PO PRN ×2 (04:58→23:28)
[2019-09-13 05:15] LABS: D-DIMER QUANT > 4000 ng/ml (<500)
[2019-09-13 05:26] LABS: ALBUMIN 2.7 GM/DL (3.2-5.2); ALT/SGPT 135 U/L (12-78); BILIRUBIN,DIRECT 0.7 MG/DL (0.0-0.2); BLOOD UREA NITROGEN 8 MG/DL (7-18); CALCIUM LEVEL 7.7 MG/DL (8.5-10.1); CARBON DIOXIDE LEVEL 26 MEQ/L (21-32); CHLORIDE LEVEL 106 MEQ/L (98-107); CPK CREATINE PHOSPHOKINASE 1195 U/L (26-192); CREATININE FOR GFR 0.93 MG/DL (0.55-1.30); FERRITIN 11963 NG/ML (8-252); GLOMERULAR FILTRATION RATE > 60.0 (>60); GLUCOSE, FASTING 83 MG/DL (70-100); LDH LACTATE DEHYDROGENASE 719 U/L (84-246); POTASSIUM SERUM 3.1 MEQ/L (3.5-5.1); SODIUM LEVEL 139 MEQ/L (136-145); TOTAL PROTEIN 6.2 GM/DL (6.4-8.2); TROPONIN I < 0.02 NG/ML (< 0.10)
[2019-09-13] MEDS ORDERED: POTASSIUM CHLORIDE 10 MEQ SR TABLET PO SCH ×2 (05:45→12:00)
[2019-09-13] MEDS ORDERED: KETOROLAC 30 MG/ML 1ML VIAL IV ONE (05:50)
[2019-09-13] MEDS: SLF 3 ML SYR IV SCH ×3 (06:13→19:25)
[2019-09-13] MEDS: VANCOMYCIN HCL 500 MG in D5W MINI-BAG PLUS 100 ML IV SCH (06:17)
[2019-09-13] MEDS: METOCLOPRAMIDE INJ 10MG/2ML VIAL (J2765 PER 1) IV PRN (06:20)
[2019-09-13] MEDS: MORPHINE 2 MG/ML 1ML VIAL (J2270) IV PRN (09:04)
[2019-09-13] MEDS: LEVOTHYROXINE 75MCG TABLET (0.075MG) PO SCH (09:07)
[2019-09-13] MEDS: CHLORTHALIDONE 25 MG TAB PO SCH (09:07)
[2019-09-13] MEDS: busPIRone 5 MG TAB PO SCH (09:08)
[2019-09-13] MEDS: buPROPion **XL** TABLET 150MG (WELLBUTRIN XL) PO SCH (09:08)
[2019-09-13] MEDS: VITAMIN D 1,000 INTERNATIONAL UNITS TABLET PO SCH (09:08)
[2019-09-13] MEDS: VERAPAMIL 120 MG SR TAB PO SCH (09:08)
[2019-09-13] MEDS: ENOXAPARIN 40MG/0.4ML SYRINGE (J1650 PER 10MG) SC SCH (09:09)
--- NOTE | 2019-09-13 10:16 | REP ---
RIGHT UPPER QUADRANT ULTRASOUND: Real-time sonographic evaluation of the right upper quadrant performed. Patient has had a prior cholecystectomy. There is expected prominence of the common bile duct measuring 8 mm in maximum diameter. The liver is enlarged measuring 25 cm in length. There is diffuse fatty infiltration with no gross mass. Pancreas is grossly unremarkable. Right kidney demonstrates no hydronephrosis. Right kidney measures 12.9 x 6.7 x 5.4 cm. There is no ascites. IMPRESSION: Status post cholecystectomy. There is hepatomegaly with diffuse fatty infiltration. No free fluid. Electronically Signed by Fabrice Hanna MD 09/13/2019 02:52 P
--- NOTE | 2019-09-13 11:57 | IPNPDOC ---
Date Seen The patient was seen on 09/13/19. Progress Note SUBJECTIVE: Patient seen and examined at the bedside this morning. She is still having high fevers overnight with accompanying headaches. She has also started having diarrhea, with 2 bowel movements recorded in the past 24 hours. She denies any lightheadedness/dizziness/photophobia or abdominal pain. She has no neurologic symptoms. No back pain. She is not having any dysuria. OBJECTIVE PHYSICAL EXAMINATION: VITAL SIGNS: Please see below. GENERAL APPEARANCE: Laying in bed, obese, appears stated age, no acute distress, calm, cooperative HEENT: EOMI, PERRLA, neck is supple with no thyromegaly or lymphadenopathy RESPIRATORY: Lungs are clear to auscultation bilaterally with no adventitious breath sounds appreciated CARDIOVASCULAR: no JVD, RRR, no murmurs/rubs/gallops, normal S1 and S2 ABDOMEN: +BS, tender to deep palpation in the right lower quadrant, soft, no rebound tenderness, no organomegaly EXTREMITIES: no clubbing, cyanosis or edema noted NEUROLOGICAL: CN 2-12 intact, No obvious focal deficits BACK: there is pain to palpation of the base of the neck radiating down the left shoulder with movement PSYCHIATRIC: normal mood/affect Skin: No rashes or ulcers appreciated, warm and well-perfused LN: No significant cervical or inguinal lymphadenopathy LABORATORY DATA, IMAGING STUDIES, MICROBIOLOGY: Please see below. Echocardiogram: None DVT prophylaxis ordered?: Lovenox ASSESSMENT AND PLAN: This is a 28-year-old female with past medical history hypertension, hypothyroidism, PCOS, who presents with fevers, chills and nausea, concerning for acute abdominal infection of unknown etiology versus viral infection. Of note, she did have exposure to a COVID-19 positive patient a little over 2 weeks ago. PROBLEMS: 1. Sepsis, unknown source at this time: differential includes viral pathology (specifically possible disseminated EBV) vs COVID-19 -Patient continues to have fevers, continue Tylenol + Ibuprofen -Continue vancomycin (day 2) and Zosyn discontinued today. She has received Cipro x1 day, Rocephin x 1 day thus far -Urine culture growing E. coli -Blood cultures no growth to date -Continue IVF NS 100cc/hr -COVID-19 labs demonstrate elevated inflammatory markers. Low suspicion COVID- 19, but patient has been in contact with known positive patients. Test repeated, as well as antibody test -CT abd/pelvis negative for abdominal pathology other than splenomegaly -Will order Rheumatologic and viral workup -Monoscreen test positive, EBV titers pending 2. Transaminitis: -Fatty liver on CT abd/pel -Liver US ordered for today 3. HTN: -Continue Chlorthalidone, Verapamil 4. Hypothyroidism: -Continue Levothyroxine 5. Mood disorder: -Continue Wellbutrin, Buspar DISPOSITION: Pending clinical improvement VS, I&O, 24H, Fishbone Vital Signs/I&O Vital Signs Date Time Temp Pulse Resp B/P (MAP) Pulse Ox O2 Delivery O2 Flow Rate FiO2 09/13/19 09:14 18 09/13/19 09:08 70 121/56 09/13/19 09:04 99 Room Air 09/13/19 09:00 100.2 I&O- Last 24 Hours up to 6 AM0 09/13/19 05:59 Intake Total 4905 ml Output Total 2700 ml Balance 2205 ml Laboratory Data 24H LABS Laboratory Tests 2 09/13/19 04:32: Nucleated Red Blood Cells % (auto) 0.0, Prothrombin Time 15.0H, Prothromb Time International Ratio 1.21, Activated Partial Thromboplast Time 32.3, Fibrinogen 286, D-Dimer, Quantitative > 4000H, Anion Gap 7L, Glomerular Filtration Rate > 60.0, Calcium Level 7.7L, Ferritin 73805N, Total Bilirubin 1.0, Direct Bilirubin 0.7H, Aspartate Amino Transf (AST/SGOT) 176H, Alanine Aminotransferase (ALT/SGPT) 135H, Alkaline Phosphatase 123H, Lactate Dehydrogenase 719H, Total Creatine Kinase 1195H, Troponin I < 0.02, C-Reactive Protein, Quantitative 11.40H, Total Protein 6.2L, Albumin 2.7L, Albumin/Globulin Ratio 0.8L CBC/BMP Laboratory Tests 09/13/19 04:32 Microbiology Microbiology 09/12/19 Blood Culture - Preliminary, Resulted No growth after 24 hours . All specim... 09/12/19 Blood Culture - Preliminary, Resulted No growth after 24 hours . All specim... 09/11/19 Coronavirus COVID-19 PCR ([facility]), Received Pending 09/10/19 Urine Culture - Final, Complete Escherichia Coli 09/10/19 Blood Culture - Preliminary, Resulted No Growth after 48 hours. All Specime... 5/18/20 Blood Culture - Preliminary, Resulted No Growth after 48 hours. All Specime... 09/10/19 Respiratory Virus Panel (PCR) ([facility]) - Final, Complete GME ATTESTATION GME ATTESTATION My faculty preceptor for this patient encounter was physically present during the encounter and was fully available. All aspects of the patient interview, examination, medical decision making process, and medical care plan development were reviewed and approved by the faculty preceptor. The faculty preceptor is a velazquez and concurs with the plan as stated in the body of this note and will attest to such by his/her cosignature. ATTENDING NOTE Patient was seen and examined by me and agree with the above assessment and plan ILA READ MD September 13, 2019 11:57 AXEL WOOD MD September 14, 2019 17:26
[2019-09-13 12:26] LABS: VANCOMYCIN LEVEL TROUGH 8.7 UG/ML (10.0-20.0)
[2019-09-13 14:07] LABS: EBV VIRAL CAPSID AG IgG < 18.0 U/mL (0.0-17.9); EBV VIRAL CAPSID AG IgM 86.9 U/mL (0.0-35.9)
[2019-09-13 16:28] LABS: CHOLESTEROL RISK RATIO 8.916 (<5)
[2019-09-13 16:45] LABS: BASO # 0.1 10^3/uL (0.0-0.2); BASO % 0.8 % (0.0-1.0); EOS # 0.1 10^3/uL (0.0-0.5); EOS % 2.1 % (0.0-3.0); MONO # 0.3 10^3/uL (0.0-0.8); MONO % 4.4 % (0.0-5.0); NEUTROPHILS # 4.6 10^3/uL (1.5-8.5); NEUTROPHILS % 75.4 % (36.0-66.0)
[2019-09-14] VITALS (25 sets, daily range): BP systolic 105–147; BP diastolic 55–73
[2019-09-14 00:07] LABS: ANTINUCLEAR ANTIBODIES DIRECT Negative (Negative)
[2019-09-14] MEDS: MORPHINE 2 MG/ML 1ML VIAL (J2270) IV PRN (00:15)
[2019-09-14] MEDS: IBUPROFEN 600 MG TAB PO PRN ×2 (00:48→19:39)
[2019-09-14] MEDS ORDERED: KETOROLAC 30 MG/ML 1ML VIAL IV ONE (02:00)
[2019-09-14] MEDS ORDERED: NS 1,000 ML IV SCH (02:00)
[2019-09-14] MEDS: ONDANSETRON 4MG/2ML VIAL IV SCH (02:15)
[2019-09-14] MEDS ORDERED: MORPHINE 2 MG/ML 1ML VIAL (J2270) IV PRN (02:15)
[2019-09-14] MEDS ORDERED: ACETAMINOPHEN 650 MG SUPP PR PRN ×2 (02:45→09:30)
[2019-09-14] MEDS: SLF 3 ML SYR IV SCH ×3 (05:03→19:38)
[2019-09-14 05:08] LABS: HEMATOCRIT 34.4 % (36.0-47.0); HEMOGLOBIN 11.4 g/dl (12.0-15.5); MEAN CORPUSCULAR HEMOGLOBIN 28.7 pg (27.0-33.0); MEAN CORPUSCULAR HGB CONC 33.1 g/dl (32.0-36.5); MEAN CORPUSCULAR VOLUME 86.6 fl (80.0-96.0); PLATELET COUNT, AUTOMATED 104 10^3/uL (150-450); RED BLOOD COUNT 3.97 10^6/uL (4.00-5.40); WHITE BLOOD COUNT 11.4 10^3/uL (4.0-10.0)
[2019-09-14 05:32] LABS: ALBUMIN 2.5 GM/DL (3.2-5.2); ALT/SGPT 179 U/L (12-78); BILIRUBIN,TOTAL 1.8 MG/DL (0.2-1.0); BLOOD UREA NITROGEN 9 MG/DL (7-18); CALCIUM LEVEL 8.2 MG/DL (8.5-10.1); CARBON DIOXIDE LEVEL 22 MEQ/L (21-32); CHLORIDE LEVEL 102 MEQ/L (98-107); CREATININE FOR GFR 0.85 MG/DL (0.55-1.30); GLOMERULAR FILTRATION RATE > 60.0 (>60); GLUCOSE, FASTING 85 MG/DL (70-100); POTASSIUM SERUM 3.1 MEQ/L (3.5-5.1); SODIUM LEVEL 135 MEQ/L (136-145); TOTAL PROTEIN 5.8 GM/DL (6.4-8.2)
[2019-09-14] MEDS: POTASSIUM CHLORIDE 10 MEQ SR TABLET PO SCH ×2 (06:49→08:51)
[2019-09-14 08:42] LABS: INR 1.22; PROTHROMBIN TIME 15.1 SECONDS (11.8-14.0)
[2019-09-14] MEDS: buPROPion **XL** TABLET 150MG (WELLBUTRIN XL) PO SCH (08:50)
[2019-09-14] MEDS: ENOXAPARIN 40MG/0.4ML SYRINGE (J1650 PER 10MG) SC SCH (08:50)
[2019-09-14] MEDS: VERAPAMIL 120 MG SR TAB PO SCH (08:50)
[2019-09-14] MEDS: CHLORTHALIDONE 25 MG TAB PO SCH (08:50)
[2019-09-14] MEDS: LEVOTHYROXINE 75MCG TABLET (0.075MG) PO SCH (08:51)
[2019-09-14] MEDS: VITAMIN D 1,000 INTERNATIONAL UNITS TABLET PO SCH (08:51)
[2019-09-14] MEDS: busPIRone 5 MG TAB PO SCH (08:51)
[2019-09-14] MEDS: ONDANSETRON 4 MG TAB PO SCH ×3 (08:51→17:40)
[2019-09-14 11:14] LABS: HEPATITIS B SURFACE ANTIGEN NEGATIVE (NEGATIVE)
[2019-09-14 11:39] LABS: HEPATITIS B CORE ANTIBODY IGM NEGATIVE (NEGATIVE)
[2019-09-14 11:43] LABS: HEPATITIS A ANTIBODY IGM NEGATIVE (NEGATIVE)
[2019-09-14] MEDS ORDERED: dexameTHASONE 20MG/5ML VIAL (J1100 PER 1MG) IV ONE (12:00)
--- NOTE | 2019-09-14 12:54 | CR.PDOC ---
General Date of Consultation: September 14, 2019 Referring Provider: KARLIE READ MD Attending Physician: AXEL LYONS MD Consultation HEMATOLOGY REASON FOR CONSULTATION/CHIEF COMPLAINT: Concern for hemophagocytic lymphohistiocytosis in setting of active Bethany-Raymond virus infection. HISTORY OF PRESENT ILLNESS: We will consulted urgently urgently on Ms. Vega who is a is a 28 year old female who presented to the emergency department and admitted September 10 with a three-day history of fevers and body aches. Her symptoms began on Tuesday after driving out to [facility] to visit family. She states that she thought she was dehydrated , experiencing chills, nausea, vomiting and body aches. 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 Today she was able to obtain a thermometer, and found her temperature to be 103F. This is when she decided to seek medical care. She has noticed some urinary frequency but denies dysuria. 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 Urine was positive for Escherichia coli Patient currently admitted in the intensive care unit to help with the cooling blanket and monitoring but has so far been clinically stable Patient's been having ongoing high spiking fevers to temperature more than 105 Workup thus far has shown the patient has acute Bethany-Raymond virus infection Imaging reveals hepatosplenomegaly. Hepatomegaly is new from September 10 to September 12 Patient's had a very rapid clinical deterioration serologically Patient's been developing some cytopenias and has ongoing transaminitis. Does profile was negative There is some concern for development of early hemophagocytic lymphohistiocytosis (HLH) To make a diagnosis of this patient needs 5 at 8 criteria to be met Patient currently meets 3 at 8 with further workup needed 1. Fever more than 38.5C 2. Splenomegaly 3. Cytopenias affecting at least 2 lineages with with a hemoglobin less than 9 g/dL, a platelet count less than 100 and refill count less than one 4. Fasting triglyceride level more than 265 and/or hypofibrinogenemia with a level less than 150 5. Hemophagocytosis on bone marrow, spleen, lymph nodes, liver or other tissue 6. Low or absent NK cell activity 7. Ferritin more than 500 g/ mL 8. Elevated sCD25 which is soluble IL-2 receptor more than 2400 units per Blood count kinetics Hepatitis A, B, and C negative Platelet count has dropped from 186 to 104,000 Hemoglobin has dropped from 13.8 g a deciliter to 11.4 g/dL 9 WBC count has remained stable currently 11.4 [place] screen positive EBV IgM 86.9: IgG is negative EBV PCR pending D-dimer more than 4000 Ferritin 11,963 on September 12 and today 15,142 Total bilirubin rosalia from 1-1.8 in last 24 hours AST rosalia from 68-235 ALT rosalia from 43 up to 179 Total CK is 1195 C-reactive protein 11.4 Albumin down to 2.5 Fasting triglyceride level this morning was 204 Fibrinogen level 286 yesterday down from 388 on the Admission pro-calcitonin 1.69 PAST MEDICAL HISTORY: 1. PCOS 2. Depression/anxiety. 3. Hypothyroidism 4. Hypertension PAST SURGICAL HISTORY: 1. Internal fixation of bilateral wrists 1996 2. Lateral Meniscus repair 2006 3. Cholecystectomy 2013 SOCIAL HISTORY: Never smoker. Occasional alcohol use. No history of IV drug use. 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 Mother alive with hypertension. ALLERGIES: Please see below. REVIEW OF SYSTEMS: CONSTITUTIONAL: Severe fatigue, ongoing high spiking fevers, malaise and reports some abdominal bloating HEENT: Denies change in vision, change in hearing. CARDIOVASCULAR: Denies chest pain, palpitations, shortness of breath, lightheadedness. RESPIRATORY: Denies dyspnea, cough, wheezing. GASTROINTESTINAL: Reports diminished appetite. Denies abdominal pain, diarrhea, constipation, blood in stool. GENITOURINARY: Improve urinary frequency SKIN: Denies rash, lesions. MUSCULOSKELETAL: Having some myalgias and generalized weakness NEUROLOGICAL: Denies headache, dizziness PSYCHIATRIC: Denies change in mood. HOME MEDICATIONS: Please see below. PHYSICAL EXAMINATION: VITAL SIGNS: See below GENERAL: Alert, comfortable, obese female laying down in bed , a little uncomfortable due to: Organ use HEENT: Normocephalic, atraumatic, EOMI, moist mucous membranes NECK: Supple, thick neck, no lymphadenopathy, no JVD CARDIOVASCULAR: Tachycardic normal S1 and S2. No murmurs, rubs, or gallops soft Signs RESPIRATORY: Clear to auscultation bilaterally with equal air entry bilaterally. No wheezing, rhonchi, or rales. Basal crackles noted ABDOMEN: Obese Soft, nontender, bowel sounds present, difficult to appreciate spleen tip. Able to palpate liver below costal margin without for masses EXTREMITIES: No cyanosis or edema. Pulses 2+/4 in bilateral upper and lower extremities. No significant edema SKIN: [place], warm, NEUROLOGIC: Alert and oriented 3 to person, place and time. PSYCHIATRIC: Mood and affect appropriate LABORATORY DATA: See below. 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 This is currently being driven by Bethany-Raymond infection. There is ample reports regarding use of rituximab in the setting which may abrogate or even reverse the current trend towards jonathan fulminant HLH syndrome. RECOMMENDATIONS Rituximab 375 mg/m =1100mg IV KATI 1 dose. This is being given at this time. Patient has consented to the rituximab. We did check an EBV PCR prior to initiation of rituximab Recommend checking fibrinogen level, daily, fasting triglyceride level daily, soluble CD25 level which will have to be sent out (not performed), daily CBCs, and patient will most likely require a biopsy of either liver +/- bone marrow pending clinical course. Given that the bone marrow aspirate needs to be analyzed with live cells, we cannot perform that until next Tuesday, recommended liver biopsy today which we tried, but were unfortunately unable to obtain. HLH is a difficult diagnosis to make and can be a fatal diagnosis Patient has had a rapid decline in her hematologic values her liver function tests and rapid hepatomegaly. I'm concerned enough that I recommend transfer to a tertiary care center after completion of rituximab therapy. It is impossible to determine the kinetics of her recovery or decline. And I am concerned about not being able to diagnose her in a timely fashion if she does decline. Therefore, out of an abundance of caution, it would be prudent to transfer the patient to a tertiary care center. I have been in contact with Dr. Randy Marte in [place] at [facility] [phone]. He has accepted the patient for transfer. He understands the patient is Covid-19 negative. Patient is in the intensive care unit only be cause of cooling blanket but is stable currently for medical/surgical floor admission. Patient is stable for hospital to hospital transfer in my opinion. Thank you kindly for allowing me to participate in the care of this patient I have printed a review manuscript published April 2017 in [employer] written by Saskia Juarez. This is titled "Bethany-Raymond virus and hemophagocytic lymphohistiocytosis." I'll put this in the patient's Green chart for review for other providers. Her current multi-organ failure which is beginning, is being driven primarily by the Bethany-Raymond virus. With reversal of this infection, we should have resolution of her symptoms and multiorgan failure that is not guaranteed. Patient may require additional treatment for HLH and this is a life-threatening diagnosis if present. There is an FDA approved medication for confirmed HLH in patients that have refractory recurrent or progressive disease or intolerant of conventional therapy called [id number]. Patient is not eligible for this treatment as it is not currently indicated. Patient is in agreement for the transfer to 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 Discussed with resident Karlie Read, Discussed case with attending Dr.Asim Lyons [phone] Randy Marte Total time on care 75 minutes more than 50% of the time was spent counseling and coordination of care. Thank you kindly for allowing me to see your patient, it is a privilege and a pleasure Vital Signs/I&O Vital Signs Date Time Temp Pulse Resp B/P (MAP) Pulse Ox O2 Delivery O2 Flow Rate FiO2 09/14/19 12:00 98.2 86 18 09/14/19 08:50 110/65 09/14/19 08:00 99 Room Air I&O- Last 24 Hours up to 6 AM 09/14/19 06:00 Intake Total 2225 ml Output Total 2350 ml Balance -125 ml Laboratory Data Labs 24H Laboratory Tests 2 09/14/19 04:41: Nucleated Red Blood Cells % (auto) 0.0, Anion Gap 11, Glomerular Filtration Rate > 60.0, Calcium Level 8.2L, Total Bilirubin 1.8#H, Aspartate Amino Transf (AST/SGOT) 235H, Alanine Aminotransferase (ALT/SGPT) 179H, Alkaline Phosphatase 175H, Total Protein 5.8L, Albumin 2.5L, Albumin/Globulin Ratio 0.8L 09/14/19 08:17: Prothrombin Time 15.1H, Prothromb Time International Ratio 1.22 09/14/19 12:09: CBC/BMP Laboratory Tests 09/14/19 04:41 Microbiology Microbiology 09/12/19 Blood Culture - Preliminary, Resulted No Growth after 48 hours. All Specime... 09/12/19 Blood Culture - Preliminary, Resulted No Growth after 48 hours. All Specime... 09/11/19 Coronavirus COVID-19 PCR ([facility]) - Final, Complete 09/10/19 Urine Culture - Final, Complete Escherichia Coli 09/10/19 Blood Culture - Preliminary, Resulted No Growth after 72 hours. All specime... 09/10/19 Blood Culture - Preliminary, Resulted No Growth after 72 hours. All specime... 09/10/19 Respiratory Virus Panel (PCR) ([facility]) - Final, Complete Allergies Coded Allergies: cefuroxime (Verified Allergy, Mild, 09/12/19) Home Medications Scheduled Bupropion HCl (Wellbutrin Xl) 300 Mg Tab, 300 MG PO DAILY, (Reported) Buspirone HCl (Buspirone HCl) 15 Mg Tablet, 15 MG PO DAILY, (Reported) Chlorthalidone (Chlorthalidone) 12.5 Mg Halftab, 25 MG PO DAILY, (Reported) Cholecalciferol (Vitamin D3) (Vitamin D3) 25 Mcg Tablet, 1,000 UNITS PO DAILY, (Reported) Levothyroxine Sodium (Levothyroxine Sodium) 75 Mcg Tab, 75 MCG PO DAILY, (Reported) Verapamil HCl (Verapamil ER) 120 Mg Cap, 120 MG PO DAILY, (Reported) NOEL CARRION MD September 14, 2019 12:54
[2019-09-14] MEDS ORDERED: NS IV ONE (15:00)
[2019-09-14] MEDS ORDERED: RITUXIMAB IV ONE (15:00)
[2019-09-14] MEDS ORDERED: diphenhydrAMINE 50MG/ML VIAL (J1200) IV PRN (15:15)
[2019-09-14] MEDS ORDERED: ACETAMINOPHEN TAB 650MG DOSE (2X325MG) PO ONE (15:15)
[2019-09-14] MEDS ORDERED: diphenhydrAMINE 50MG/ML VIAL (J1200) IV ONE (15:15)
--- NOTE | 2019-09-14 16:38 | DS.PDOC ---
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 Vega who is a is a 28 year old female who presented to the emergency department and admitted September 10 with a three-day history of fevers and body aches. Her symptoms began on Tuesday after driving out to [facility] to visit family. She states that she thought she was dehydrated , experiencing chills, nausea, vomiting and body aches. 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 She has noticed some urinary frequency but denies dysuria. 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 Urine was positive for Escherichia coli for which she was on Rocephin. As the patient remained hypothermic and had even the fevers of 105. The patient was Patient admitted in the intensive care unit to help with the cooling blanket and monitoring but has so far been clinically stable . Patient's been having ongoing high spiking fevers to temperature more than 105 Workup thus far has shown the patient has acute Bethany-Raymond virus infection . And imaging reveals hepatosplenomegaly. Hepatomegaly is new from September 10 to September 12. Initially there were concerns of cord 19 and she got a rapid test done which came out to be negative. Then the test was sent out lab, along with antigen which also came out to be negative. All other workup has been negative including blood cultures. The differential diagnoses was tapered down to systemic infectious mononucleosis . Patient's had a very rapid clinical deterioration serologically . Patient's been developing some cytopenias and has ongoing transaminitis. Hematology oncology was consulted and There is some concern for development of early hemophagocytic lymphohistiocytosis (HLH). I spoke with them and as per them To make a diagnosis of this patient needs 5 at 8 criteria to be met , but Patient currently meets 3 at 8 with further workup needed. Because of high suspicion and seriousness of this illness. It has been decided the patient will be transferred to a higher Level. Rituximab 375 mg/m =1100mg IV KATI 1 dose was given as per oncology. We did check an EBV PCR prior to initiation of rituximab The recommendations from the oncology is checking fibrinogen level, daily, fasting triglyceride level daily, soluble CD25 level which will have to be sent out (not performed), daily CBCs, and patient will most likely require a biopsy of either liver +/- bone marrow pending clinical course. Given that the bone marrow aspirate needs to be analyzed with live cells, and as per oncology we cannot perform that until next Tuesday, oncology recommended liver biopsy today which they tried, but were unfortunately unable to obtain. As the patient has had a rapid decline in her hematologic values her liver function tests and rapid hepatomegaly. Hematology is concerned enough that I recommend transfer to a tertiary care center after completion of rituximab therapy. The director of product management contacted with Dr. Randy Marte in [place] at [facility] [phone]. He has accepted the patient for transfer. He understands the patient is Covid-19 negative. Patient is in the intensive care unit only because of cooling blanket but is stable currently for m edical/surgical floor admission. Patient is stable for hospital to hospital transfer. PHYSICAL EXAMINATION: VITAL SIGNS: Please see below. GENERAL APPEARANCE: Laying in bed, obese, appears stated age, no acute distress, calm, cooperative HEENT: EOMI, PERRLA, neck is supple with no thyromegaly or lymphadenopathy RESPIRATORY: Lungs are clear to auscultation bilaterally with no adventitious breath sounds appreciated CARDIOVASCULAR: no JVD, RRR, no murmurs/rubs/gallops, normal S1 and S2 ABDOMEN: +BS, tender to deep palpation in the right lower quadrant, soft, no rebound tenderness, no organomegaly EXTREMITIES: no clubbing, cyanosis or edema noted NEUROLOGICAL: CN 2-12 intact, No obvious focal deficits BACK: there is pain to palpation of the base of the neck radiating down the left shoulder with movement PSYCHIATRIC: normal mood/affect Skin: No rashes or ulcers appreciated, warm and well-perfused LN: No significant cervical or inguinal lymphadenopathy Relevant labs on discharge Hepatitis A, B, and C negative Platelet count has dropped from 186 to 104,000 Hemoglobin has dropped from 13.8 g a deciliter to 11.4 g/dL 9 WBC count has remained stable currently 11.4 [place] screen positive EBV IgM 86.9: IgG is negative EBV PCR pending D-dimer more than 4000 Ferritin 11,963 on September 12 and today 15,142 Total bilirubin rosalia from 1-1.8 in last 24 hours AST rosalia from 68-235 ALT rosalia from 43 up to 179 Total CK is 1195 C-reactive protein 11.4 Albumin down to 2.5 Fasting triglyceride level this morning was 204 Fibrinogen level 286 yesterday down from 388 on the 19th Admission pro-calcitonin 1.69 Medications. As per discharge reconciliation medication list Activity as tolerated Diet. 2 g sodium diet Follow-up appointments. PCP in 1 week, ID in 1 week, hematology in 1 week Condition on discharge. Patient is being discharged high at the level Discharge disposition: [facility] Total time spent on this discharge including coordination of care, review of chart documentation and extubation contact is around 50 minutes Vital Signs/I&Os Vital Signs Date Time Temp Pulse Resp B/P (MAP) Pulse Ox O2 Delivery O2 Flow Rate FiO2 09/14/19 16:00 98.5 80 16 130/66 (87) Room Air 09/14/19 12:00 99 I&O- Last 24 Hours up to 6 AM 09/14/19 06:00 Intake Total 2225 ml Output Total 2350 ml Balance -125 ml Laboratory Data Labs 24H Laboratory Tests 2 09/14/19 04:41: Nucleated Red Blood Cells % (auto) 0.0, Anion Gap 11, Glomerular Filtration Rate > 60.0, Calcium Level 8.2L, Total Bilirubin 1.8#H, Aspartate Amino Transf (AST/SGOT) 235H, Alanine Aminotransferase (ALT/SGPT) 179H, Alkaline Phosphatase 175H, Total Protein 5.8L, Albumin 2.5L, Albumin/Globulin Ratio 0.8L 09/14/19 08:17: Prothrombin Time 15.1H, Prothromb Time International Ratio 1.22 09/14/19 12:09: Ferritin 61125C CBC/BMP Laboratory Tests 09/14/19 04:41 Microbiology Microbiology 09/12/19 Blood Culture - Preliminary, Resulted No Growth after 48 hours. All Specime... 09/12/19 Blood Culture - Preliminary, Resulted No Growth after 48 hours. All Specime... 09/11/19 Coronavirus COVID-19 PCR (LINDA) - Final, Complete 09/10/19 Urine Culture - Final, Complete Escherichia Coli 09/10/19 Blood Culture - Preliminary, Resulted No Growth after 72 hours. All specime... 09/10/19 Blood Culture - Preliminary, Resulted No Growth after 72 hours. All specime... 09/10/19 Respiratory Virus Panel (PCR) (LINDA) - Final, Complete Discharge Medications Scheduled Bupropion HCl (Wellbutrin Xl) 300 Mg Tab, 300 MG PO DAILY, (Reported) Buspirone HCl (Buspirone HCl) 15 Mg Tablet, 15 MG PO DAILY, (Reported) Chlorthalidone (Chlorthalidone) 12.5 Mg Halftab, 25 MG PO DAILY, (Reported) Cholecalciferol (Vitamin D3) (Vitamin D3) 25 Mcg Tablet, 1,000 UNITS PO DAILY, (Reported) Levothyroxine Sodium (Levothyroxine Sodium) 75 Mcg Tab, 75 MCG PO DAILY, (Reported) Verapamil HCl (Verapamil ER) 120 Mg Cap, 120 MG PO DAILY, (Reported) Allergies Coded Allergies: cefuroxime (Verified Allergy, Mild, 09/12/19) AXEL WOOD MD September 14, 2019 16:26
--- NOTE | 2019-09-14 17:24 | CR ---
DATE OF CONSULTATION: Asked to consult by Dr. Chavez for evaluation of fever with abnormal liver function tests and elevated inflammatory markers. 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 She presented to the hospital with fever that started on Tuesday after she had gone to [place] to visit her family. She hung out with her two sisters. They were not ill. She developed that night fever with shaking chills that persisted for about 4 days with nausea and vomiting. No abdominal pain and no diarrhea. She had shaking chills and body aches. She felt dehydrated. She had decreased urine output. Her mother brought her a thermometer and forced her to come to the hospital when she noticed she had a temperature of 103. The patient will receive broad-spectrum antibiotics including vancomycin and Zosyn. Urine culture was positive for Escherichia (E) coli. In spite of that she had persistent fever. Her COVID testing was negative twice and mononucleosis screen was positive along with EBV, IgG, IgM. The patient feels better this afternoon. Her fever broke for the past 6 hours. She denies any cough or shortness of breath. She denies any sore throat. She does not recall ever been told having mononucleosis as a kid. Although, she was on a sport team with her friend who had mononucleosis. Her past medical history is significant for obesity, polycystic ovary syndrome, depression, anxiety, hypothyroidism, and hypertension. PAST SURGICAL HISTORY: Internal fixation of bilateral wrist, lateral meniscus repair in 2006, and cholecystectomy in 2013. SOCIAL HISTORY: She never smoked. She drinks socially. No IV drug use. FAMILY HISTORY: Father has diabetes and hypertension. Mother has hypertension. REVIEW OF SYSTEMS: She had fever, chills, sweats, rigors. Denied any headache, neck stiffness, chest pain or shortness of breath. Denied any dyspnea or cough or sore throat. She had no abdominal pain or diarrhea but had nausea and vomiting that have now resolved. Medications : - morphine 2 mg IV every 6 hours as needed - vancomycin 1.25 grams every 8 - zosyn 4.5 grams IV every 6 hours - ibuprofen 600 mg every 4 as needed - metoclopramide 5 mg IV every 8 hours - tramadol as needed pain - Zofran as needed - bupropion 300 mg by mouth daily - BuSpar 15 mg by mouth daily - chlorthalidone 25 mg by mouth daily - vitamin D 1000 units daily - levothyroxine 75 mcg daily - verapamil 120 mg by mouth daily She also received on 09/11/2019 one dose of ceftriaxone and two doses of IV ciprofloxacin. LABORATORY DATA: White count was 8.8 admission, today was 6.1, hemoglobin 12, hematocrit 36.1, platelets 124, 75% neutrophils, 16% lymphocytes, 4% monocytes. Platelets have dropped from 186 to 124. Sodium 139. Potassium 3.1. Chloride 106. Bicarbonate 26. BUN 8. Creatinine 0.93. Glucose 83. Calcium 7.7. Lactic acid 1.2. AST 176. ALT 130. Alkaline phosphatase 123. LDH 719. CPK 1195. Troponin less than 0.02. CRP 11.4, down full range of motion 16.1. Triglycerides 204. Total cholesterol 107. TSH 2.86. HCG less than 1. Procalcitonin 1.69, which suggestive of moderate risk for progression to sepsis. Respiratory panel was negative. Blood cultures two sets were no growth after 48 hours. Urine culture had 30,000 E coli. COVID-19 was negative. Repeat blood cultures on 09/12/2019 were also negative. Urinalysis had many white cells, +2 esterase, [address] abdomen and pelvis - fatty infiltration of the liver, mild splenomegaly. Intrauterine device in place. Normal appendix. Liver ultrasound - status post cholecystectomy, hepatomegaly with fatty liver, no fluid. Renal ultrasound unremarkable and chest x-ray no acute infiltrates. :PHYSICAL EXAMINATION She is a pleasant, healthy-looking female in no acute distress. Heart: Normal S1, S2. No murmurs, rubs or gallops. Lungs are clear. No wheezes, rales or rhonchi. Abdomen: Obese, soft, nontender. Extremities: No clubbing, cyanosis or edema. No calf tenderness. Dry heels. Back: No costovertebral angle (CVA) or lumbosacral tenderness. Oropharynx is clear with no thrush. Neck is supple. No jugular venous distention (JVD). No carotid bruits. She has submandibular adenopathy only on the right side. Pupils equal and reactive, anicteric. IMPRESSION: This is 28-year-old female who was admitted with fever, chills, nausea and vomiting was found to have bacteria with a positive urinalysis and elevated procalcitonin. She has been treated with 4 days of broad-spectrum antibiotics including Cipro, ceftriaxone, and Zosyn. She is currently asymptomatic from a urinary standpoint. Her symptoms were mostly suggestive of acute infectious mononucleosis with the fact that she has a positive mononucleosis screen and positive IgM with a negative IgG. She has elevated inflammatory marker including ferritin and CRP, elevated LFTs consistent with mild hepatitis from or infectious mononucleosis and mild hepatosplenomegaly. She does not have significant sore throat but has mild right submandibular adenopathy. 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 Her ferritin had gone from 7576 to 11,000, but fibrinogen remains normal and triglycerides are normal. PLAN: Discontinue all antibiotics. Continue with hydration and Tylenol as needed for comfort. Continue to monitor labs for any worsening cytopenias or ferritin, or if fever persists. Monitor for HLH using the calculator. Best score would be 169 with a sensitivity of 93%, and specificity of 86% for accurate classification of HLH. [facility]
--- NOTE | 2019-09-15 07:15 | IPN ---
DATE OF VISIT: 09/14/2019 SUBJECTIVE: Patient is a 28-year-old female who presented to the hospital on 09/10/2019 with a chief complaint of fever and feeling ill. The patient was initially thought to possibly be septic from a urinary tract infection, however, further workup revealed the patient did not have a bacterial infection. 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 The patient says that she is feeling better, however, she is spiking very high fevers overnight with a fever of 105.0 degrees Fahrenheit fever at 2:00 a.m. last night. She was febrile from 2245 until 0600 overnight. This was the fourth night in a row that this had happened. The patient says she feels well when she does not have a fever, but can feel the fever coming on overnight and becomes quite uncomfortable. The patient today does not have any acute complaints and says she is feeling better. PHYSICAL EXAMINATION: Vital Signs: Temperature 98.2, pulse 86, respiratory rate 18, blood pressure 113/68, pulse oximetry 99% on room air. General: The patient is an alert and oriented female who was laying in bed when we walked in. The patient was sleeping, but arose very easily. The patient did not appear to be in any acute distress. HEENT: Normocephalic, atraumatic, with anicteric sclerae. Neck was supple with no lymphadenopathy. Cardiovascular: Regular rate and rhythm with normal S1 and S2 with no murmurs. Respiratory: Clear to auscultation bilaterally. Abdomen: Soft. Nontender. Nondistended. Normoactive bowel sounds. No splenomegaly was appreciated. Extremities: There was trace to 1+ edema in the lower extremities bilaterally. Skin: Examined and did not show any evidence of wounds or rashes. LABORATORY STUDIES: White blood cells 11.4, hemoglobin 11.4, hematocrit 34.4, platelets 104. Sodium 135, potassium 3.1, chloride 102, bicarbonate 11, BUN 9, creatinine 0.85, glucose 85, calcium 8.2, ferritin 15,142, total bilirubin 1.8, AST 235, ALT 179, alkaline phosphatase 175, total protein 5.8, albumin 2.5. MICROBIOLOGY: Patient had a urine culture on 09/10/2019 which grew E. Coli and 30,000 colony forming units per mL. The patient had blood cultures times two on 09/10/2019 which were both negative. Respiratory panel on 09/10/2019 was negative. COVID-19 respiratory test on 09/11/2019 was negative. Blood cultures on 09/12/2019 times two are negative times 48 hours. IMAGING: A liver ultrasound performed on 09/13/2019 was reported to show status post cholecystectomy. There is hepatomegaly with diffuse fatty infiltrate. No free fluid. ASSESSMENT AND PLAN: The patient is a 28-year-old female who presented with fever and dehydration which was initially thought to be secondary to sepsis which is now thought to be secondary to hemophagocytic lymphohistiocytosis. 1. Hemophagocytic lymphohistiocytosis. We recommended that the primary team consult hematology/oncology for this patient. Hematology/oncology has seen the patient and will start Rituximab with plans to transfer the patient to [place] to get further treatment. There is concern that this condition can be very life threatening very quickly. This condition is in the setting of Bethany-Raymond virus. The patient did receive a dose of Decadron 10 mg earlier today to help begin the treatment. The patient was also given premedication prior to getting Rituximab. The patient will continue under the care of hematology/oncology and once the patient is transferred to [place] they will continue to monitor and care for the patient.
== END 2019-09-14 21:55 | disposition short-term general hospital (02) | DRG 723 ==
LOC: M ED 20:53 → M ED INP 23:41 → ENRESERV 09-11 00:06 → M PCU 09-11 00:49 → M ICU 09-12 13:47
PROVIDERS: ADMIT Internal Medicine; ATTEND Internal Medicine
DX: B27.09 Gammaherpesviral mononucleosis with other complications (principal); D76.1 Hemophagocytic lymphohistiocytosis; R16.1 Splenomegaly, not elsewhere classified; Z68.42 Body mass index [BMI] 45.0-49.9, adult; F32.9 Major depressive disorder, single episode, unspecified; F41.9 Anxiety disorder, unspecified; E03.9 Hypothyroidism, unspecified; B96.20 Unspecified Escherichia coli [E. coli] as the cause of diseases classified elsewhere; I10 Essential (primary) hypertension; E86.0 Dehydration; N39.0 Urinary tract infection, site not specified; E66.9 Obesity, unspecified; E28.2 Polycystic ovarian syndrome; E87.6 Hypokalemia; Z79.899 Other long term (current) drug therapy; Z88.1 Allergy status to other antibiotic agents; Z90.49 Acquired absence of other specified parts of digestive tract

== ENCOUNTER → 2019-09-25 | Outpatient (REF) | payer BC ==
[~2019-09-25] MED LIST changes: +BUSP15TA47 PO; +VITA-144 PO
[2019-09-25 19:11] LABS: HEMATOCRIT 37.4 % (36.0-47.0); HEMOGLOBIN 11.7 g/dl (12.0-15.5); MEAN CORPUSCULAR HEMOGLOBIN 28.5 pg (27.0-33.0); MEAN CORPUSCULAR HGB CONC 31.3 g/dl (32.0-36.5); PLATELET COUNT, AUTOMATED 289 10^3/uL (150-450); RED BLOOD COUNT 4.11 10^6/uL (4.00-5.40); WHITE BLOOD COUNT 6.4 10^3/uL (4.0-10.0)
[2019-09-25 19:23] LABS: INR 1.04; PROTHROMBIN TIME 13.3 SECONDS (11.8-14.0)
[2019-09-25 19:45] LABS: ALBUMIN 2.8 GM/DL (3.2-5.2); ALT/SGPT 96 U/L (12-78); BILIRUBIN,TOTAL 0.8 MG/DL (0.2-1.0); BLOOD UREA NITROGEN 17 MG/DL (7-18); CALCIUM LEVEL 8.8 MG/DL (8.5-10.1); CARBON DIOXIDE LEVEL 29 MEQ/L (21-32); CHLORIDE LEVEL 103 MEQ/L (98-107); CREATININE FOR GFR 0.77 MG/DL (0.55-1.30); FERRITIN 2426 NG/ML (8-252); GLOMERULAR FILTRATION RATE > 60.0 (>60); GLUCOSE, FASTING 162 MG/DL (70-100); LDH LACTATE DEHYDROGENASE 489 U/L (84-246); POTASSIUM SERUM 4.7 MEQ/L (3.5-5.1); SODIUM LEVEL 136 MEQ/L (136-145); TOTAL PROTEIN 7.2 GM/DL (6.4-8.2); TRIGLYCERIDES LEVEL 452 MG/DL (<150)
[2019-09-25 20:55] LABS: ATYPICAL LYMPH 2 % (0-5); BASOPHILS 1 % (0-1); LYMPHOCYTES 36 % (16-44); MONOCYTES 5 % (0-5); NEUTROPHILS 54 % (28-66); PLATELET ESTIMATE NORMAL (NORMAL)
[2019-09-25 21:03] LABS: ANISOCYTOSIS 1+
== END ==
LOC: M LABDRWAD 16:44
DX: B27.90 Infectious mononucleosis, unspecified without complication (principal)

== ENCOUNTER → 2019-10-04 | Outpatient (REF) | payer BC ==
[2019-10-04 18:25] LABS: BASO # 0.1 10^3/uL (0.0-0.2); BASO % 0.7 % (0.0-1.0); EOS % 0.5 % (0.0-3.0); HEMATOCRIT 37.3 % (36.0-47.0); HEMOGLOBIN 11.8 g/dl (12.0-15.5); LYMPH # 2.5 10^3/uL (1.5-5.0); LYMPH % 33.8 % (24.0-44.0); MEAN CORPUSCULAR HEMOGLOBIN 28.1 pg (27.0-33.0); MEAN CORPUSCULAR HGB CONC 31.6 g/dl (32.0-36.5); MEAN CORPUSCULAR VOLUME 88.8 fl (80.0-96.0); MONO # 0.5 10^3/uL (0.0-0.8); MONO % 6.7 % (0.0-5.0); NEUTROPHILS # 4.2 10^3/uL (1.5-8.5); NEUTROPHILS % 57.2 % (36.0-66.0); PLATELET COUNT, AUTOMATED 347 10^3/uL (150-450); WHITE BLOOD COUNT 7.3 10^3/uL (4.0-10.0)
[2019-10-11 07:09] LABS: log10 EBV DNA QN PCR 2.064 (.)
== END ==
LOC: M LABDRWAD 17:54
PROVIDERS: ATTEND Nurse Practitioner
DX: B27.90 Infectious mononucleosis, unspecified without complication (principal)

== ENCOUNTER → 2019-10-11 | Outpatient (REF) | payer BC ==
[2019-10-11 18:45] LABS: BASO # 0.1 10^3/uL (0.0-0.2); EOS # 0.2 10^3/uL (0.0-0.5); EOS % 3.2 % (0.0-3.0); HEMATOCRIT 38.7 % (36.0-47.0); LYMPH # 2.8 10^3/uL (1.5-5.0); LYMPH % 44.9 % (24.0-44.0); MEAN CORPUSCULAR HEMOGLOBIN 27.8 pg (27.0-33.0); MEAN CORPUSCULAR VOLUME 89.6 fl (80.0-96.0); MONO # 0.7 10^3/uL (0.0-0.8); MONO % 11.1 % (0.0-5.0); NEUTROPHILS # 2.4 10^3/uL (1.5-8.5); PLATELET COUNT, AUTOMATED 353 10^3/uL (150-450); RED BLOOD COUNT 4.32 10^6/uL (4.00-5.40); WHITE BLOOD COUNT 6.2 10^3/uL (4.0-10.0)
== END ==
LOC: M LABDRWAD 16:13
PROVIDERS: ATTEND Nurse Practitioner
DX: B27.90 Infectious mononucleosis, unspecified without complication (principal)

== ENCOUNTER → 2019-10-22 | Outpatient (REF) | payer BC ==
[2019-10-22 18:09] LABS: BASO # 0.1 10^3/uL (0.0-0.2); BASO % 0.5 % (0.0-1.0); EOS # 0.2 10^3/uL (0.0-0.5); EOS % 2.1 % (0.0-3.0); HEMOGLOBIN 12.7 g/dl (12.0-15.5); LYMPH # 3.2 10^3/uL (1.5-5.0); LYMPH % 32.2 % (24.0-44.0); MEAN CORPUSCULAR HEMOGLOBIN 27.8 pg (27.0-33.0); MEAN CORPUSCULAR HGB CONC 31.8 g/dl (32.0-36.5); MEAN CORPUSCULAR VOLUME 87.5 fl (80.0-96.0); MONO % 9.8 % (0.0-5.0); NEUTROPHILS # 5.5 10^3/uL (1.5-8.5); PLATELET COUNT, AUTOMATED 362 10^3/uL (150-450); RED BLOOD COUNT 4.57 10^6/uL (4.00-5.40); WHITE BLOOD COUNT 9.9 10^3/uL (4.0-10.0)
[2019-10-22 18:49] LABS: ALBUMIN 3.8 GM/DL (3.2-5.2); ALT/SGPT 44 U/L (12-78); BILIRUBIN,TOTAL 0.5 MG/DL (0.2-1.0); BLOOD UREA NITROGEN 15 MG/DL (7-18); CALCIUM LEVEL 9.5 MG/DL (8.5-10.1); CARBON DIOXIDE LEVEL 26 MEQ/L (21-32); CHLORIDE LEVEL 108 MEQ/L (98-107); CREATININE FOR GFR 0.99 MG/DL (0.55-1.30); FERRITIN 86 NG/ML (8-252); GLOMERULAR FILTRATION RATE > 60.0 (>60); GLUCOSE, FASTING 72 MG/DL (70-100); SODIUM LEVEL 142 MEQ/L (136-145); TOTAL PROTEIN 7.4 GM/DL (6.4-8.2)
== END ==
LOC: M LABDRWAD 16:26
PROVIDERS: ATTEND Nurse Practitioner
DX: B27.90 Infectious mononucleosis, unspecified without complication (principal)

== ENCOUNTER → 2019-11-12 | Outpatient (REF) | payer BC ==
[~2019-11-12] MED LIST changes: -VITA-144 PO; +VITA100017 PO
[2019-11-12 17:30] LABS: BASO % 0.4 % (0.0-1.0); EOS % 0.4 % (0.0-3.0); HEMATOCRIT 41.7 % (36.0-47.0); HEMOGLOBIN 13.2 g/dl (12.0-15.5); LYMPH # 1.2 10^3/uL (1.5-5.0); LYMPH % 10.7 % (24.0-44.0); MEAN CORPUSCULAR HEMOGLOBIN 27.4 pg (27.0-33.0); MEAN CORPUSCULAR HGB CONC 31.7 g/dl (32.0-36.5); MEAN CORPUSCULAR VOLUME 86.5 fl (80.0-96.0); MONO # 0.5 10^3/uL (0.0-0.8); MONO % 4.8 % (0.0-5.0); NEUTROPHILS # 9.2 10^3/uL (1.5-8.5); NEUTROPHILS % 83.3 % (36.0-66.0); PLATELET COUNT, AUTOMATED 369 10^3/uL (150-450); RED BLOOD COUNT 4.82 10^6/uL (4.00-5.40); WHITE BLOOD COUNT 11.1 10^3/uL (4.0-10.0)
[2019-11-12 18:25] LABS: BILIRUBIN,TOTAL 0.6 MG/DL (0.2-1.0); CALCIUM LEVEL 9.5 MG/DL (8.5-10.1); CREATININE FOR GFR 1.16 MG/DL (0.55-1.30); GLOMERULAR FILTRATION RATE 58.8 (>60); POTASSIUM SERUM 4.1 MEQ/L (3.5-5.1); TOTAL PROTEIN 7.5 GM/DL (6.4-8.2)
[2020-01-09 08:49] LABS: log10 EBV DNA QN PCR SEE SEPARATE REPORT
== END ==
LOC: M LABDRWAD 16:50
PROVIDERS: ATTEND Nurse Practitioner
DX: B27.90 Infectious mononucleosis, unspecified without complication (principal)

== ENCOUNTER → 2019-12-10 | Outpatient (REF) | payer BC ==
[2020-01-26 23:07] LABS: BASO # 0.1 10^3/uL (0.0-0.2); BASO % 0.6 % (0.0-1.0); EOS # 0.1 10^3/uL (0.0-0.5); EOS % 0.9 % (0.0-3.0); HEMATOCRIT 38.8 % (36.0-47.0); HEMOGLOBIN 12.5 g/dl (12.0-15.5); LYMPH # 2.5 10^3/uL (1.5-5.0); LYMPH % 28.6 % (24.0-44.0); MEAN CORPUSCULAR HEMOGLOBIN 27.4 pg (27.0-33.0); MEAN CORPUSCULAR HGB CONC 32.2 g/dl (32.0-36.5); MEAN CORPUSCULAR VOLUME 84.9 fl (80.0-96.0); MONO # 0.7 10^3/uL (0.0-0.8); NEUTROPHILS # 5.4 10^3/uL (1.5-8.5); NEUTROPHILS % 61.4 % (36.0-66.0); PLATELET COUNT, AUTOMATED 360 10^3/uL (150-450); RED BLOOD COUNT 4.57 10^6/uL (4.00-5.40); WHITE BLOOD COUNT 8.7 10^3/uL (4.0-10.0)
== END ==
LOC: M LABDRWAD 14:46
PROVIDERS: ATTEND Nurse Practitioner
DX: B27.90 Infectious mononucleosis, unspecified without complication (principal)

== ENCOUNTER → 2020-01-08 | Outpatient (REF) | payer BC ==
[2020-01-08 17:53] LABS: BASO % 0.5 % (0.0-1.0); EOS % 0.3 % (0.0-3.0); HEMATOCRIT 40.2 % (36.0-47.0); HEMOGLOBIN 12.8 g/dl (12.0-15.5); LYMPH # 0.6 10^3/uL (1.5-5.0); LYMPH % 9.1 % (24.0-44.0); MEAN CORPUSCULAR HEMOGLOBIN 26.7 pg (27.0-33.0); MEAN CORPUSCULAR HGB CONC 31.8 g/dl (32.0-36.5); MEAN CORPUSCULAR VOLUME 83.9 fl (80.0-96.0); MONO # 0.6 10^3/uL (0.0-0.8); MONO % 9.8 % (0.0-5.0); NEUTROPHILS # 4.8 10^3/uL (1.5-8.5); NEUTROPHILS % 79.6 % (36.0-66.0); PLATELET COUNT, AUTOMATED 281 10^3/uL (150-450); RED BLOOD COUNT 4.79 10^6/uL (4.00-5.40)
[2020-01-08 18:13] LABS: ALBUMIN 3.7 GM/DL (3.2-5.2); ALT/SGPT 33 U/L (12-78); BILIRUBIN,TOTAL 0.4 MG/DL (0.2-1.0); BLOOD UREA NITROGEN 13 MG/DL (7-18); CALCIUM LEVEL 9.1 MG/DL (8.5-10.1); CARBON DIOXIDE LEVEL 25 MEQ/L (21-32); CHLORIDE LEVEL 106 MEQ/L (98-107); CREATININE FOR GFR 1.11 MG/DL (0.55-1.30); FERRITIN 121 NG/ML (8-252); GLOMERULAR FILTRATION RATE > 60.0 (>60); GLUCOSE, FASTING 123 MG/DL (70-100); POTASSIUM SERUM 3.5 MEQ/L (3.5-5.1); SODIUM LEVEL 137 MEQ/L (136-145); TOTAL PROTEIN 7.6 GM/DL (6.4-8.2)
== END ==
LOC: M LABDRWAD 16:52
PROVIDERS: ATTEND Nurse Practitioner
DX: B27.90 Infectious mononucleosis, unspecified without complication (principal)

== ENCOUNTER → 2020-03-07 | Outpatient (REF) | payer BC ==
[2020-03-07 18:52] LABS: FOLATE 10.9 NG/ML
== END ==
LOC: M SFHCADAM 14:01
PROVIDERS: ATTEND Physician Assistant
DX: M25.541 Pain in joints of right hand (principal); M25.542 Pain in joints of left hand

== ENCOUNTER → 2020-03-07 | Outpatient (REF) | payer BC ==
[2020-03-07 18:06] LABS: BASO # 0.1 10^3/uL (0.0-0.2); BASO % 0.6 % (0.0-1.0); EOS # 0.1 10^3/uL (0.0-0.5); HEMATOCRIT 43.2 % (36.0-47.0); HEMOGLOBIN 13.6 g/dl (12.0-15.5); LYMPH # 2.1 10^3/uL (1.5-5.0); LYMPH % 25.2 % (24.0-44.0); MEAN CORPUSCULAR HEMOGLOBIN 26.8 pg (27.0-33.0); MEAN CORPUSCULAR HGB CONC 31.5 g/dl (32.0-36.5); MONO # 0.7 10^3/uL (0.0-0.8); MONO % 8.9 % (0.0-5.0); NEUTROPHILS # 5.2 10^3/uL (1.5-8.5); NEUTROPHILS % 64.1 % (36.0-66.0); PLATELET COUNT, AUTOMATED 372 10^3/uL (150-450); RED BLOOD COUNT 5.08 10^6/uL (4.00-5.40); WHITE BLOOD COUNT 8.1 10^3/uL (4.0-10.0)
[2020-03-07 18:41] LABS: ALBUMIN 4.1 GM/DL (3.2-5.2); ALT/SGPT 41 U/L (12-78); BILIRUBIN,TOTAL 0.6 MG/DL (0.2-1.0); BLOOD UREA NITROGEN 14 MG/DL (7-18); CALCIUM LEVEL 9.7 MG/DL (8.5-10.1); CARBON DIOXIDE LEVEL 26 MEQ/L (21-32); CHLORIDE LEVEL 105 MEQ/L (98-107); CREATININE FOR GFR 0.99 MG/DL (0.55-1.30); FERRITIN 36 NG/ML (8-252); GLOMERULAR FILTRATION RATE > 60.0 (>60); GLUCOSE, FASTING 80 MG/DL (70-100); POTASSIUM SERUM 3.8 MEQ/L (3.5-5.1); SODIUM LEVEL 139 MEQ/L (136-145); TOTAL PROTEIN 7.4 GM/DL (6.4-8.2)
== END ==
LOC: M LABDRWAD 16:46
PROVIDERS: ATTEND Nurse Practitioner
DX: B27.90 Infectious mononucleosis, unspecified without complication (principal)

== ENCOUNTER → 2020-03-07 | Outpatient (REF) | payer BC ==
[2020-03-07 18:52] LABS: C REACTIVE PROTEIN QUANTITATIV 0.71 MG/DL (0.00-0.30); FREE T4 0.78 NG/DL (0.76-1.46); RHEUMATOID FACTOR QUANT < 10.0 IU/ML (<15.0)
== END ==
LOC: M LABDRWAD 16:54
PROVIDERS: ATTEND Orthopaedic Surgery
DX: M25.531 Pain in right wrist (principal)

== ENCOUNTER → 2020-12-22 | Outpatient (REF) | payer BC | LOC: M SFHCWAGY 13:54 | PROVIDERS: ATTEND Specialist | DX: Z01.419 Encounter for gynecological examination (general) (routine) without abnormal findings (principal); R87.610 Atypical squamous cells of undetermined significance on cytologic smear of cervix (ASC-US) | CPT/HCPCS: 87624; G0123 ==

== ENCOUNTER → 2021-02-05 | Outpatient (CLI) | payer BC ==
[2021-02-05 19:08] LABS: BASO # 0.1 10^3/uL (0.0-0.2); BASO % 0.5 % (0.0-1.0); EOS # 0.1 10^3/uL (0.0-0.5); EOS % 1.1 % (0.0-3.0); HEMATOCRIT 40.5 % (36.0-47.0); HEMOGLOBIN 13.5 g/dl (12.0-15.5); LYMPH # 3.4 10^3/uL (1.5-5.0); LYMPH % 27.9 % (24.0-44.0); MEAN CORPUSCULAR HEMOGLOBIN 29.5 pg (27.0-33.0); MEAN CORPUSCULAR HGB CONC 33.3 g/dl (32.0-36.5); MEAN CORPUSCULAR VOLUME 88.6 fl (80.0-96.0); MONO # 0.8 10^3/uL (0.0-0.8); MONO % 6.4 % (2.0-8.0); NEUTROPHILS # 7.7 10^3/uL (1.5-8.5); NEUTROPHILS % 63.7 % (36.0-66.0); PLATELET COUNT, AUTOMATED 368 10^3/uL (150-450); RED BLOOD COUNT 4.57 10^6/uL (4.00-5.40); WHITE BLOOD COUNT 12.1 10^3/uL (4.0-10.0)
[2021-02-05 19:50] LABS: ALBUMIN 3.7 GM/DL (3.2-5.2); ALT/SGPT 34 U/L (12-78); BILIRUBIN,TOTAL 0.5 MG/DL (0.2-1.0); BLOOD UREA NITROGEN 18 MG/DL (7-18); CALCIUM LEVEL 9.7 MG/DL (8.5-10.1); CARBON DIOXIDE LEVEL 28 MEQ/L (21-32); CHLORIDE LEVEL 107 MEQ/L (98-107); CREATININE FOR GFR 0.96 MG/DL (0.55-1.30); FREE T4 0.78 NG/DL (0.76-1.46); GLOMERULAR FILTRATION RATE > 60.0 (>60); GLUCOSE, FASTING 77 MG/DL (70-100); POTASSIUM SERUM 3.6 MEQ/L (3.5-5.1); SODIUM LEVEL 141 MEQ/L (136-145); TOTAL 25(OH) VITAMIN D 42.7 NG/ML (30.0-100.0); TOTAL PROTEIN 7.2 GM/DL (6.4-8.2); VITAMIN B12 LEVEL 454 PG/ML
[2021-02-06 10:55] LABS: FOLATE 7.1 NG/ML
[2021-02-07 19:21] LABS: EBV VIRAL CAPSID AG IgM <36.0 U/mL (0.0-35.9)
== END ==
LOC: M LAB 17:27
PROVIDERS: ATTEND Physician Assistant
DX: R53.82 Chronic fatigue, unspecified (principal); R23.8 Other skin changes

== ENCOUNTER → 2021-02-12 | Outpatient (REF) | payer BC ==
[2021-02-12 13:29] LABS: BASO # 0.1 10^3/uL (0.0-0.2); BASO % 0.5 % (0.0-1.0); EOS # 0.1 10^3/uL (0.0-0.5); EOS % 1.2 % (0.0-3.0); HEMATOCRIT 43.3 % (36.0-47.0); HEMOGLOBIN 14.2 g/dl (12.0-15.5); LYMPH # 3.2 10^3/uL (1.5-5.0); LYMPH % 28.3 % (24.0-44.0); MEAN CORPUSCULAR HEMOGLOBIN 29.2 pg (27.0-33.0); MEAN CORPUSCULAR HGB CONC 32.8 g/dl (32.0-36.5); MEAN CORPUSCULAR VOLUME 88.9 fl (80.0-96.0); MONO # 0.8 10^3/uL (0.0-0.8); MONO % 6.8 % (2.0-8.0); NEUTROPHILS # 7.1 10^3/uL (1.5-8.5); NEUTROPHILS % 62.8 % (36.0-66.0); PLATELET COUNT, AUTOMATED 383 10^3/uL (150-450); RED BLOOD COUNT 4.87 10^6/uL (4.00-5.40); WHITE BLOOD COUNT 11.3 10^3/uL (4.0-10.0)
[2021-02-12 14:00] LABS: PERCENT SATURATION 18.7 % (13.2-45.0)
[2021-02-13 17:08] LABS: Lyme Disease IgG/IgM Antibodie <0.91 ISR (0.00-0.90); Lyme Disease IgM Ab Quantitati <0.80 index (0.00-0.79)
== END ==
LOC: M SFHCADAM 10:47
PROVIDERS: ATTEND Physician Assistant
DX: R51.9 Headache, unspecified (principal); R53.82 Chronic fatigue, unspecified

== ENCOUNTER → 2021-03-03 | Outpatient (CLI) | payer BC ==
[2021-03-03 14:07] LABS: BASO # 0.1 10^3/uL (0.0-0.2); BASO % 0.7 % (0.0-1.0); EOS # 0.1 10^3/uL (0.0-0.5); EOS % 1.3 % (0.0-3.0); HEMATOCRIT 41.8 % (36.0-47.0); HEMOGLOBIN 13.4 g/dl (12.0-15.5); LYMPH # 2.2 10^3/uL (1.5-5.0); LYMPH % 23.8 % (24.0-44.0); MEAN CORPUSCULAR HEMOGLOBIN 29.1 pg (27.0-33.0); MEAN CORPUSCULAR HGB CONC 32.1 g/dl (32.0-36.5); MEAN CORPUSCULAR VOLUME 90.9 fl (80.0-96.0); MONO # 0.8 10^3/uL (0.0-0.8); MONO % 8.2 % (2.0-8.0); NEUTROPHILS % 65.5 % (36.0-66.0); PLATELET COUNT, AUTOMATED 354 10^3/uL (150-450); WHITE BLOOD COUNT 9.2 10^3/uL (4.0-10.0)
[2021-03-03 16:22] LABS: ERYTHROCYTE SEDIMENTATION RATE 25 mm/hr (0-20)
== END ==
LOC: M PLALAB 08:52
PROVIDERS: ATTEND Internal Medicine Infectious Disease
DX: Z86.19 Personal history of other infectious and parasitic diseases (principal)

== ENCOUNTER → 2021-06-02 | Outpatient (CLI) | payer BC ==
[2021-06-02 17:30] LABS: BASO % 0.5 % (0.0-1.0); EOS # 0.1 10^3/uL (0.0-0.5); EOS % 1.4 % (0.0-3.0); HEMATOCRIT 41.4 % (36.0-47.0); HEMOGLOBIN 13.5 g/dl (12.0-15.5); LYMPH # 0.9 10^3/uL (1.5-5.0); LYMPH % 11.9 % (24.0-44.0); MEAN CORPUSCULAR HEMOGLOBIN 29.3 pg (27.0-33.0); MEAN CORPUSCULAR HGB CONC 32.6 g/dl (32.0-36.5); MEAN CORPUSCULAR VOLUME 89.8 fl (80.0-96.0); MONO # 0.8 10^3/uL (0.0-0.8); MONO % 10.1 % (2.0-8.0); NEUTROPHILS # 5.9 10^3/uL (1.5-8.5); NEUTROPHILS % 75.8 % (36.0-66.0); PLATELET COUNT, AUTOMATED 269 10^3/uL (150-450); RED BLOOD COUNT 4.61 10^6/uL (4.00-5.40); WHITE BLOOD COUNT 7.8 10^3/uL (4.0-10.0)
[2021-06-02 17:54] LABS: ALBUMIN 3.4 GM/DL (3.2-5.2); ALT/SGPT 37 U/L (12-78); BILIRUBIN,TOTAL 0.4 MG/DL (0.2-1.0); BLOOD UREA NITROGEN 11 MG/DL (7-18); CALCIUM LEVEL 9.1 MG/DL (8.5-10.1); CARBON DIOXIDE LEVEL 31 MEQ/L (21-32); CHLORIDE LEVEL 105 MEQ/L (98-107); CREATININE FOR GFR 0.92 MG/DL (0.55-1.30); GLOMERULAR FILTRATION RATE > 60.0 (>60); GLUCOSE, FASTING 100 MG/DL (70-100); POTASSIUM SERUM 3.6 MEQ/L (3.5-5.1); SODIUM LEVEL 142 MEQ/L (136-145)
[2021-06-02 17:57] LABS: ERYTHROCYTE SEDIMENTATION RATE 30 mm/hr (0-20)
== END ==
LOC: M PLALAB 15:28
PROVIDERS: ATTEND Internal Medicine Infectious Disease
DX: R51.9 Headache, unspecified (principal); B27.90 Infectious mononucleosis, unspecified without complication

== ENCOUNTER → 2022-05-28 | Outpatient (CLI) | payer OTHER ==
[2022-05-28 13:36] LABS: HEMATOCRIT 42.5 % (36.0-47.0); HEMOGLOBIN 13.7 g/dl (12.0-15.5); MEAN CORPUSCULAR HEMOGLOBIN 29.1 pg (27.0-33.0); MEAN CORPUSCULAR HGB CONC 32.2 g/dl (32.0-36.5); MEAN CORPUSCULAR VOLUME 90.2 fl (80.0-96.0); PLATELET COUNT, AUTOMATED 379 10^3/uL (150-450); RED BLOOD COUNT 4.71 10^6/uL (4.00-5.40); WHITE BLOOD COUNT 12.9 10^3/uL (4.0-10.0)
[2022-05-28 14:01] LABS: ALBUMIN 3.8 G/DL (3.2-5.2); ALKALINE PHOSPHATASE 79 U/L (46-116); ALT/SGPT 41 U/L (7.0-40); AST/SGOT 26 U/L (<34); BILIRUBIN,TOTAL 0.4 MG/DL (0.3-1.2); BLOOD UREA NITROGEN 17 MG/DL (9-23); CALCIUM LEVEL 9.8 MG/DL (8.5-10.1); CARBON DIOXIDE LEVEL 27 MMOL/L (20-31); CHLORIDE LEVEL 103 MMOL/L (98-107); CHOLESTEROL LEVEL 171 MG/DL (<200); CHOLESTEROL RISK RATIO 5.24 (<5); CREATININE FOR GFR 1.05 MG/DL (0.55-1.30); GLOMERULAR FILTRATION RATE > 60.0 (>60); GLUCOSE, FASTING 84 MG/DL (60-100); HDL CHOLESTEROL 32.6 MG/DL (>40); LDL CHOLESTEROL 85.6 MG/DL (<100); NON-HDL-C 138 MG/DL; POTASSIUM SERUM 3.8 MMOL/L (3.5-5.1); SODIUM LEVEL 139 MMOL/L (136-145); TOTAL 25(OH) VITAMIN D 53.2 NG/ML (20.0-100.0); TRIGLYCERIDES LEVEL 264 MG/DL (<150)
[2022-05-28 14:02] LABS: THYROID STIMULATING HORMONE 3.284 uIU/ML (0.55-4.78)
[2022-05-28 14:03] LABS: FREE T4 0.77 NG/DL (0.89-1.76)
[2022-05-28 14:12] LABS: HEMOGLOBIN A1c 5.6 % (4.0-6.0)
[2022-05-28 14:57] LABS: ATYPICAL LYMPH 6 % (0-5); BASOPHILS 1 % (0-1); EOSINOPHILS 1 % (0-3); LYMPHOCYTES 27 % (16-44); MONOCYTES 9 % (0-5); NEUTROPHILS 56 % (28-66)
[2022-05-28 14:58] LABS: PLATELET ESTIMATE NORMAL (NORMAL)
== END ==
LOC: M PLALAB 10:46
PROVIDERS: ATTEND Physician Assistant
DX: E78.1 Pure hyperglyceridemia (principal); I10 Essential (primary) hypertension; E55.9 Vitamin D deficiency, unspecified; E66.01 Morbid (severe) obesity due to excess calories

== ENCOUNTER → 2022-12-01 | Outpatient (REF) | payer OTHER ==
[2022-12-01 13:01] LABS: BASO # 0.1 10^3/uL (0.0-0.2); BASO % 0.6 % (0.0-1.0); EOS # 0.1 10^3/uL (0.0-0.5); EOS % 1.1 % (0.0-3.0); HEMATOCRIT 42.6 % (36.0-47.0); HEMOGLOBIN 13.6 g/dl (12.0-15.5); LYMPH # 3.9 10^3/uL (1.5-5.0); LYMPH % 29.3 % (24.0-44.0); MEAN CORPUSCULAR HEMOGLOBIN 28.9 pg (27.0-33.0); MEAN CORPUSCULAR HGB CONC 31.9 g/dl (32.0-36.5); MEAN CORPUSCULAR VOLUME 90.6 fl (80.0-96.0); MONO # 0.9 10^3/uL (0.0-0.8); MONO % 6.8 % (2.0-8.0); NEUTROPHILS # 8.2 10^3/uL (1.5-8.5); NEUTROPHILS % 61.4 % (36.0-66.0); PLATELET COUNT, AUTOMATED 371 10^3/uL (150-450); WHITE BLOOD COUNT 13.3 10^3/uL (4.0-10.0)
[2022-12-01 13:29] LABS: ALBUMIN 3.6 G/DL (3.2-5.2); ALKALINE PHOSPHATASE 85 U/L (46-116); ALT/SGPT 42 U/L (7.0-40); AST/SGOT 17 U/L (<34); BILIRUBIN,TOTAL 0.4 MG/DL (0.3-1.2); BLOOD UREA NITROGEN 13 MG/DL (9-23); CALCIUM LEVEL 9.8 MG/DL (8.5-10.1); CARBON DIOXIDE LEVEL 28 MMOL/L (20-31); CHLORIDE LEVEL 103 MMOL/L (98-107); GLOMERULAR FILTRATION RATE > 60.0 (>60); GLUCOSE, FASTING 108 MG/DL (60-100); POTASSIUM SERUM 3.8 MMOL/L (3.5-5.1); SODIUM LEVEL 139 MMOL/L (136-145); TOTAL PROTEIN 7.2 G/DL (5.7-8.2)
[2022-12-01 13:31] LABS: FREE T4 0.82 NG/DL (0.89-1.76); THYROID STIMULATING HORMONE 6.083 uIU/ML (0.55-4.78)
[2022-12-01 13:38] LABS: HEMOGLOBIN A1c 6.4 % (4.0-6.0)
== END ==
LOC: M SFHCADAM 08:03
PROVIDERS: ATTEND Physician Assistant
DX: E28.2 Polycystic ovarian syndrome (principal); E03.9 Hypothyroidism, unspecified; I10 Essential (primary) hypertension; Z68.43 Body mass index [BMI] 50.0-59.9, adult

== ENCOUNTER → 2022-12-16 | Outpatient (REF) | payer OTHER ==
[2022-12-19 02:06] LABS: EBV AB TO NUCLEAR ANTIGEN >600.0 U/mL (0.0-17.9); EBV VIRAL CAPSID AG IgM <36.0 U/mL (0.0-35.9); IgG P18 AB Absent (.); IgG P23 AB Absent (.); IgG P28 AB Absent (.); IgG P30 AB Absent (.); IgG P39 AB Absent (.); IgG P41 AB Present (.); IgG P45 AB Absent (.); IgG P66 AB Absent (.); IgG P93 AB Absent (.); IgM P23 AB Absent (.); IgM P39 AB Absent (.); IgM P41 AB Absent (.); LYME IgG WB INTERPRETATION Negative (.); LYME IgM WB INTERPRETATION Negative (.)
== END ==
LOC: M SFHCADAM 11:50
PROVIDERS: ATTEND Physician Assistant
DX: D72.829 Elevated white blood cell count, unspecified (principal)

== ENCOUNTER → 2023-01-03 | Outpatient (REF) | payer OTHER ==
[2023-01-03 14:52] LABS: FREE T4 0.95 NG/DL (0.89-1.76); THYROID STIMULATING HORMONE 1.996 uIU/ML (0.55-4.78)
== END ==
LOC: M SFHCADAM 11:00
PROVIDERS: ATTEND Physician Assistant
DX: E03.9 Hypothyroidism, unspecified (principal)

== ENCOUNTER → 2023-04-12 | Outpatient (CLI) | payer OTHER ==
[2023-04-12 16:19] LABS: RHEUMATOID FACTOR QUANT < 3.5 IU/ML (<14)
[2023-04-14 23:07] LABS: ANA (HEP2) Negative (.); CYCLIC CITRULLINATED PEPTIDE 6 units (0-19)
== END ==
LOC: M PLALAB 12:56
PROVIDERS: ATTEND Physician Assistant
DX: R53.82 Chronic fatigue, unspecified (principal); R79.82 Elevated C-reactive protein (CRP)

== ENCOUNTER → 2023-04-13 | Outpatient (CLI) | payer OTHER ==
[2023-04-13 18:24] LABS: FREE T4 0.9 NG/DL (0.89-1.76); THYROID STIMULATING HORMONE 3.382 uIU/ML (0.55-4.78)
[2023-04-13 18:32] LABS: HEMOGLOBIN A1c 5.7 % (4.0-6.0)
== END ==
LOC: M LAB 17:31
PROVIDERS: ATTEND Physician Assistant
DX: R73.03 Prediabetes (principal)

== ENCOUNTER → 2024-08-08 | Outpatient (REF) | payer OTHER ==
[2024-08-08 19:33] LABS: BASO # 0.1 10^3/uL (0.0-0.2); BASO % 0.5 % (0.0-1.0); EOS # 0.1 10^3/uL (0.0-0.5); EOS % 1.2 % (0.0-3.0); HEMATOCRIT 43.1 % (36.0-47.0); HEMOGLOBIN 14.3 g/dl (12.0-15.5); LYMPH # 3.9 10^3/uL (1.5-5.0); LYMPH % 33.8 % (24.0-44.0); MEAN CORPUSCULAR HEMOGLOBIN 30.4 pg (27.0-33.0); MEAN CORPUSCULAR HGB CONC 33.2 g/dl (32.0-36.5); MEAN CORPUSCULAR VOLUME 91.7 fl (80.0-96.0); MONO # 0.9 10^3/uL (0.0-0.8); MONO % 7.6 % (2.0-8.0); NEUTROPHILS # 6.5 10^3/uL (1.5-8.5); NEUTROPHILS % 56.2 % (36.0-66.0); PLATELET COUNT, AUTOMATED 416 10^3/uL (150-450); WHITE BLOOD COUNT 11.5 10^3/uL (4.0-10.0)
[2024-08-08 19:45] LABS: ALBUMIN 3.7 G/DL (3.2-5.2); ALKALINE PHOSPHATASE 81 U/L (35-104); ALT/SGPT 117 U/L (7.0-40); AST/SGOT 79 U/L (<34); BILIRUBIN,TOTAL 0.7 MG/DL (0.3-1.2); BLOOD UREA NITROGEN 13 MG/DL (9-23); CALCIUM LEVEL 9.5 MG/DL (8.5-10.1); CARBON DIOXIDE LEVEL 27 MMOL/L (20-31); CHLORIDE LEVEL 101 MMOL/L (98-107); CREATININE FOR GFR 0.83 MG/DL (0.55-1.30); GLOMERULAR FILTRATION RATE > 90.0 (>60); GLUCOSE, FASTING 137 MG/DL (60-100); POTASSIUM SERUM 3.3 MMOL/L (3.5-5.1); SODIUM LEVEL 135 MMOL/L (136-145); TOTAL PROTEIN 7.7 G/DL (5.7-8.2)
[2024-08-08 19:47] LABS: FREE T4 1.16 NG/DL (0.89-1.76); THYROID STIMULATING HORMONE 1.612 uIU/ML (0.55-4.78)
[2024-08-08 19:52] LABS: HEMOGLOBIN A1c 7.1 % (4.0-6.0)
== END ==
LOC: M LAB REF 19:17
PROVIDERS: ATTEND Physician Assistant
DX: E03.9 Hypothyroidism, unspecified (principal); E55.9 Vitamin D deficiency, unspecified; R73.03 Prediabetes; I10 Essential (primary) hypertension; E28.0 Estrogen excess

== ENCOUNTER → 2024-09-05 | Outpatient (REF) | payer OTHER ==
[2024-09-05 17:46] LABS: ALBUMIN 3.8 G/DL (3.2-5.2); ALKALINE PHOSPHATASE 80 U/L (35-104); ALT/SGPT 85 U/L (7.0-40); AST/SGOT 43 U/L (<34); BILIRUBIN,TOTAL 0.6 MG/DL (0.3-1.2); BLOOD UREA NITROGEN 19 MG/DL (9-23); CALCIUM LEVEL 9.6 MG/DL (8.5-10.1); CARBON DIOXIDE LEVEL 28 MMOL/L (20-31); CHLORIDE LEVEL 101 MMOL/L (98-107); CREATININE FOR GFR 0.83 MG/DL (0.55-1.30); GLOMERULAR FILTRATION RATE > 90.0 (>60); GLUCOSE, FASTING 142 MG/DL (60-100); POTASSIUM SERUM 3.8 MMOL/L (3.5-5.1); SODIUM LEVEL 138 MMOL/L (136-145); TOTAL PROTEIN 7.7 G/DL (5.7-8.2)
[2024-09-05 17:57] LABS: HEPATITIS B SURFACE ANTIGEN NEGATIVE (NEGATIVE)
[2024-09-05 18:18] LABS: HEPATITIS C VIRUS ABY INDEX 0.05 INDEX (<0.8)
[2024-09-05 18:19] LABS: HEPATITIS B CORE ANTIBODY IGM NEGATIVE (NEGATIVE)
== END ==
LOC: M SFHCADAM 11:27
PROVIDERS: ATTEND Physician Assistant
DX: E11.9 Type 2 diabetes mellitus without complications (principal); E87.6 Hypokalemia; K76.0 Fatty (change of) liver, not elsewhere classified

== ENCOUNTER → 2024-12-05 | Outpatient (REF) | payer OTHER ==
[2024-12-05 13:07] LABS: BASO # 0.1 10^3/uL (0.0-0.2); BASO % 0.8 % (0.0-1.0); EOS # 0.1 10^3/uL (0.0-0.5); EOS % 1.1 % (0.0-3.0); LYMPH # 4.0 10^3/uL (1.5-5.0); LYMPH % 35.7 % (24.0-44.0); MONO # 0.8 10^3/uL (0.0-0.8); MONO % 7.2 % (2.0-8.0); NEUTROPHILS # 6.2 10^3/uL (1.5-8.5); NEUTROPHILS % 54.8 % (36.0-66.0); PLATELET COUNT, AUTOMATED 444 10^3/uL (150-450)
[2024-12-05 13:26] LABS: ESTIMATED AVERAGE GLUCOSE 105.0 MG/DL (60-110)
[2024-12-05 13:38] LABS: ALT/SGPT 38.0 U/L (7.0-40); AST/SGOT 20.0 U/L (<34); CALCIUM LEVEL 10.0 MG/DL (8.5-10.1); CARBON DIOXIDE LEVEL 28.0 MMOL/L (20-31); CHLORIDE LEVEL 100.0 MMOL/L (98-107); CREATININE FOR GFR 1.0 MG/DL (0.55-1.30); GLOMERULAR FILTRATION RATE 75.8 (>60); POTASSIUM SERUM 3.5 MMOL/L (3.5-5.1); SODIUM LEVEL 140.0 MMOL/L (136-145)
[2024-12-05 13:39] LABS: TOTAL 25(OH) VITAMIN D 64.5 NG/ML (20.0-100.0)
== END ==
LOC: M SFHCADAM 10:17
PROVIDERS: ATTEND Physician Assistant
DX: E11.9 Type 2 diabetes mellitus without complications (principal); K76.0 Fatty (change of) liver, not elsewhere classified; E55.9 Vitamin D deficiency, unspecified; E87.6 Hypokalemia